=== PATIENT | female | born 1950 | race Caucasian/White ===

== ENCOUNTER 2024-12-12 13:30 | Outpatient (AMB) | payer OTHER, MEDICARE, MEDICAID, SELFPAY ==
[2024-12-12 13:42] VITALS: BP 106/60; PULSE 52; TEMP 36.3; O2SAT 95; BMI 27.8
--- NOTE | 2024-12-12 13:42 | MHC.PC.OV ---
Vital Signs 12/12/24 13:42 Height 4 ft 9.25 in Weight 129 lb 6.4 oz BMI 27.8 BP 106/60 Blood Pressure Location Lt brachial Position Sitting Pulse 52 Pulse Source Pulse Oximeter Temp 97.3 F Temp Source Temporal Artery Scan Pulse Oximetry (%) 95 Oxygen Delivery Method Room Air Intake Visit Reasons: establish care Intake Note: Patient is a new patient here to establish care. Transferring care from [facility] in [facility]. Medical records have not been requested and have not been received. Authorization to Release Medical Information Form completed today. Draw Bench Operator Required: No Accompanied by: Daughter Allergies codeine Allergy (Unknown, Verified 12/12/24 14:02) Itching dextromethorphan [Delsym] Allergy (Unknown, Verified 12/12/24 14:02) it put me in the hospital quetiapine [Seroquel] Allergy (Unknown, Verified 12/12/24 14:02) severe swelling meperidine [From DEMEROL] Adverse Reaction (Severe, Verified 12/12/24 14:02) NAUSEA & VOMITING morphine [MORPHINE] Adverse Reaction (Unknown, Verified 12/12/24 14:02) NAUSEA VOMITING Codeine Sulfate Allergy (Unknown, Uncoded 12/12/24 14:02) itching Medication List - Last Reconciled 12/12/24 by Kayla Arevalo PA-C albuterol sulfate 90 mcg/actuation 2 puffs inhalation Q6H amitriptyline 150 mg PO BEDTIME amlodipine 10 mg PO DAILY atorvastatin 80 mg PO QPM budesonide-formoterol 160-4.5 mcg/actuation (Symbicort) inhalation clonazepam 1 mg PO TID PRN duloxetine 30 mg PO DAILY metoprolol tartrate 50 mg PO DAILY nitroglycerin 0.4 mg sublingual Q5M PRN omeprazole 20 mg PO DAILY Tobacco use date assessed: 12/12/24 Fall risk assessment: 2 + Falls in past year Last assessed Fall Risk: 12/12/24 Dental Screening Dental Screen Date: 12/12/24 Did you have a dental visit in the last 12 months?: Yes Did you have a dental problem in the last 6 months where you did not have access to dental care?: No Was dental information given to patient?: Patient has dentist HPI establish care HPI Details 74-year-old female coming to the office for the 1st time. Transfer from [facility] in [place]. Presenting with management of chronic conditions and medication review. She reports issues with changing doctors and health insurance, impacting her treatment plan. Concerns are raised regarding previous psychiatric medications, specifically those affecting mood, causing dry mouth. She has a long-standing sleep apnea diagnosis, with a current CPAP machine that is outdated and ineffective. Chest pain has been identified, occurring monthly, and typically resolving with minimal intervention. Cognition and memory issues have become concerning, with an MRI scheduled for further evaluation. The patient's breast cancer history and ongoing soreness are noted in past treatments. [facility] Surgical History Hx of cholecystectomy Hx of left mastectomy History of intraocular lens implant Family History Father Hypertension Stroke Heart attack Mother Diabetes Daughter No problems noted. Other FH: mental illness Family history of substance abuse Social History Household Members: Family Housing: House Alcohol intake: former Patient Tobacco Use Status: Former Tobacco user (2004 quit) Tobacco use type: Cigarette e-Cigarette/Vaping Use: Never Used Second Hand Smoke Exposure: No service: No Current occupational status: retired Cognitive needs: No Hearing needs: No Vision needs: No Questionnaire PHQ-9 Over the last 2 weeks, how often have you been bothered by any of the following problems? 1. Little interest or pleasure in doing things: nearly every day 2. Feeling down, depressed, or hopeless: nearly every day 3. Trouble falling or staying asleep, or sleeping too much: nearly every day 4. Feeling tired or having little energy: nearly every day 5. Poor appetite or overeating: not at all 6. Feeling bad about yourself - or that you are a failure or have let yourself or your family down: nearly every day 7. Trouble concentrating on things, such as reading the newspaper or watching television: several days 8. Moving or speaking so slowly that other people could have noticed. Or the opposite - being so fidgety or restless that you have been moving around a lot more than usual: more than half the days 9. Thoughts that you would be better off or of hurting yourself in some way: several days Total score: 19 Depression Screening Interpretation: Positive Depression Screening Follow-up: Existing condition and In treatment Depression Screening Done: Yes 55229 - PHQ-9 Billing: Yes Source: Developed by Drs. Davis Parrish, Shikha Sands, Elver Berrios and colleagues, with an educational haydee from [employer]. Thrive Questionnaire Date Thrive assessed: 12/12/24 I am a: Parent/Caregiver What is your living situation today?: I have a steady place to live Within the past 12 months, did the food you bought not last and you didn't have the money to get more?: Often true Within the past 12 months, did you worry whether your food would run out before you got money to buy more?: Often true Do you have trouble paying for medicines?: No Do you have trouble getting transportation to medical appointments?: No Do you have trouble paying your heating and electricity bill?: No Do you have trouble taking care of your child, family member or friend?: No Do you have trouble with day-to-day activities such as bathing, preparing meals, shopping, managing finances, etc.?: Yes Are you currently unemployed and looking for a job?: No Are you interested in more education?: No Please select the resources that you would like help with: None Currently or been in a relationship where the following occur: No concerns reported THRIVE Score: 2 AUDIT C Alcohol Use Questionnaire (AUDIT-C) 1. How often do you have a drink containing alcohol?: Never 3. How often do you have six or more drinks on one occasion?: Never Total Score: 0 Score Reviewed/Action Taken: No JUSTYN-7 AMB Questionnaire JUSTYN-7 Date JUSTYN - 7 assessed: 12/12/24 Feeling nervous, anxious, or on edge: 3 = Nearly every day Not being able to stop or control worryin = Nearly every day Worrying too much about different things: 3 = Nearly every day Trouble relaxin = Nearly every day Being so restless that it is hard to sit still: 0 = Not at all Becoming easily annoyed or irritable: 2 = More than half the days Feeling afraid as if something awful might happen: 3 = Nearly every day Total JUSTYN-7 score (0-4 normal; 5-9 mild; 10-14 moderate; 15-21 severe): 17 Source: Developed by Drs. Davis Parrish, Shikha Sands, Elver Berrios and colleagues, with an educational haydee from [employer]. JUSTYN-7 Assessment Billing JUSTYN-7 Assessment Tool: JUSTYN-7 Assessment 90491 Review of Systems Const Denies body aches, Denies chills, Denies fever(s), Denies headache(s) and Denies poor appetite Eyes Reports no additional complaints ENT Denies dysphagia, Denies dizziness, Denies headache(s) and Denies odynophagia Card Denies chest pain, Denies syncope, Denies edema, Denies irregular heart rhythm, Denies lightheadedness and Denies dyspnea Resp Denies cough and Denies dyspnea GI Denies abdominal pain, Denies constipation, Denies dysphagia, Denies diarrhea, Denies nausea, Denies odynophagia and Denies vomiting Reports no additional complaints Musc Reports no additional complaints and Denies abnormal gait Skin/Breast Reports system reviewed and no additional complaints, except as documented Neuro Denies abnormal gait, Denies dizziness, Denies syncope and Denies headache(s) Psych Reports no additional complaints Physical exam (Primary Care) Vital Signs: Last Vital Signs Temp 97.3 F 12/12/24 13:42 Pulse 52 12/12/24 13:42 BP 106/60 12/12/24 13:42 Pulse Ox 95 12/12/24 13:42 Oxygen Delivery Method Room Air 12/12/24 13:42 BMI result Body Mass Index 27.8 Tobacco/Smoking Status: Tobacco use Status Tobacco use date assessed 12/12/24 12/12/24 13:49 Patient Tobacco Use Status Former Tobacco user (200412/12/24 14:29 quit) Tobacco use type Cigarette 12/12/24 14:01 e-Cigarette/Vaping Use Never Used 12/12/24 14:01 PHQ-9: PHQ-9 Score PHQ-9: Total score 19 12/13/24 11:33 Depression Screening Interpretation: Positive Depression Screening Follow-up: Existing condition and In treatment Thrive Assessment: Date of Thrive Assessment Date Thrive assessed 12/12/24 12/12/24 14:03 Currently or been in a relationship where the following occur: No concerns reported Const General: cooperative, healthy appearing, comfortable and no acute distress Orientation/consciousness: patient oriented x3 HENMT Head: Yes normocephalic Ears: hearing grossly normal bilaterally General nose exam: Normal external nose present Eyes General: appearance normal, both eyes and all related structures Conjunctivae: conjunctivae normal Neck Neck: Yes full ROM and Yes no lymphadenopathy Resp Effort & Inspection: normal respiratory effort Auscultation: clear to auscultation bilaterally, no crackles, no rales, no rhonchi and no wheezes Cardio Rate: regular rate Rhythm: regular rhythm Skin General skin exam: no rashes or lesions noted Neuro General: patient oriented x3 Gait exam (Neuro): Normal gait present Extrem General: Yes normal to inspection, Yes full ROM and No edema Psych Affect: normal affect Attitude: cooperative Insight: Good insight present (Psych) Judgement: Good judgement present (Psych) Coding Level of Care Code New Pt Level 4 (29747) Diagnoses Depression F32.A Anxiety F41.9 GERD (gastroesophageal reflux disease) K21.9 Angina pectoris I20.9 Insomnia G47.00 COPD (chronic obstructive pulmonary disease) J44.9 Hypertension I10 Hypercholesterolemia E78.00 Memory impairment R41.3 Obstructive sleep apnea G47.33 Additional Codes JUSTYN-7 Assessment Billing - JUSTYN-7 Assessment Tool: JUSTYN-7 Assessment 69874 ([id number]) PHQ-9 - 73684 - PHQ-9 Billing: Yes ([id number]) Assessment & Plan Assessment & Plan (1) Depression: Code(s): F32.A - Depression, unspecified Category: Medical Plan: Plan to discontinue on amitriptyline at this time reviewed with patient tapering schedule. Continue on duloxetine and plan to add trazodone for both depression and sleep. Plan to refer to outpatient psych clinic as well for further evaluation and treatment. (2) Anxiety: Code(s): F41.9 - Anxiety disorder, unspecified Category: Medical Plan: See plan above (3) GERD (gastroesophageal reflux disease): Code(s): K21.9 - Gastro-esophageal reflux disease without esophagitis Category: Medical Plan: Avoid trigger foods such as citrus, tomato products, soda, caffeine, spicy foods and other foods that may be irritating to your stomach. Avoid laying flat 3-4 hours after eating and elevate the head of the bed 30 degrees to prevent acid from moving into the esophagus. Continue on omeprazole (4) Angina pectoris: Code(s): I20.9 - Angina pectoris, unspecified Category: Medical Plan: Patient having chronic angina stable uses nitroglycerin. Patient has not had stress test in many years plan to order for nuclear stress test as patient can not walk for long periods of time is not a candidate for exercise stress test. Referral also placed to Cardiology (5) Insomnia: Code(s): G47.00 - Insomnia, unspecified Category: Medical Plan: See plan for depression (6) COPD (chronic obstructive pulmonary disease): Code(s): J44.9 - Chronic obstructive pulmonary disease, unspecified Category: Medical Plan: Patient is stable on current inhalers. She has been using her inhalers inappropriately and using the albuterol twice daily and Symbicort as needed. I instructed the patient and gave written and verbal instructions on how to appropriately use the inhalers. (7) Hypertension: Code(s): I10 - Essential (primary) hypertension Category: Medical Plan: Continue on current blood pressure medication. Avoid salt intake and encourage healthy diet and regular exercise. (8) Hypercholesterolemia: Code(s): E78.00 - Pure hypercholesterolemia, unspecified Category: Medical Plan: Avoid foods that are high in cholesterol such as red meat, fried foods, eggs and baked goods. Triglyceride goal of less than 150 and LDL goal of less than 100. Continue on atorvastatin 80 (9) Memory impairment: Code(s): R41.3 - Other amnesia Category: Medical Plan: Patient has MRI this Monday scheduled by her last PCP to evaluate for cognitive impairment. Can consider referral to Neurology. Patient has good insight into her health and is able to make appropriate informed decisions (10) Obstructive sleep apnea: Code(s): G47.33 - Obstructive sleep apnea (adult) (pediatric) Category: Medical Plan: Patient was prescribed CPAP many years ago and has not been using it for a long period of time due to the CPAP she had being updated and settings not appropriate. Referred to sleep medicine at this time for further evaluation and CPAP titration. Plan Patient has poor med compliance referral was placed to nurse navigation for follow up. I discussed continuing management for hypertension and COPD with current medications. I initiated transitioning from amitriptyline due to side effects to trazodone, starting at 25 mg to manage depression and sleep issues. An MRI for cognitive impairment and a non-exercise stress test were recommended to assess cardiovascular function. Referred patient to sleep medicine for CPAP titration. Nursing staff will assist with medication education and management. Ongoing monitoring will ensure understanding and compliance. This note was constructed using voice recognition software. While every effort has been made to ensure accuracy and clinical appeals specialist, still areas may have been included sometimes these areas may affect the content or meeting of the given symptoms. Total time spent caring for the patient today was 30 minutes. This includes time spent before the visit reviewing the chart, time spent during the visit, and time spent after the visit and documentation. Patient was informed and verbally consented to the use of an ambient scribe for clinic note documentation during this visit. Orders: Orders Comprehensive Met. Panel 12/12/24 Z00.00 - Encounter for general adult medical examination without abnormal findings Complete Blood Count Auto Diff 12/12/24.00 - Encounter for general adult medical examination without abnormal findings Lipid Panel 12/12/24 E78.00 - Pure hypercholesterolemia, unspecified Vitamin D 25-OH Total 12/12/24.00 - Encounter for general adult medical examination without abnormal findings TSH reflex Free T4 12/12/2400.00 - Encounter for general adult medical examination without abnormal findings CA lexiscan stress w gino 12/12/24 I20.9 - Angina pectoris, unspecified Vitamin B12 and Folate 12/12/24 Z00.00 - Encounter for general adult medical examination without abnormal findings Free T4 (Free Thyroxine) 12/12/24 Z00.00 - Encounter for general adult medical examination without abnormal findings Hemoglobin A1c 12/12/24 Z13.1 - Encounter for screening for diabetes mellitus NM cardiolite stress test 12/12/24 I20.9 - Angina pectoris, unspecified Referrals Psychiatry Outpatient Consultation Service F32.A - Depression, unspecified, F41.9 - Anxiety disorder, unspecified Cardiology Referral I20.9 - Angina pectoris, unspecified Sleep Medicine Referral G47.33 - Obstructive sleep apnea (adult) (pediatric) Nurse Navigator Referral J44.9 - Chronic obstructive pulmonary disease, unspecified, R41.3 - Other amnesia Medications: New trazodone 50 mg PO BEDTIME 30 tabs 0RF
--- OUTSIDE RECORDS SUMMARY | 2024-12-12 16:18 | XMS_ITS | Encounter Summary ---
Author Organization [employer] Address [address] [place] [address] Care Team Providers Care Saloon Keeper Name Role Phone Unavailable Primary Care Provider Unavailabl e Reason for Visit * Reason Onset Date Comments Appointment 10/05/2022 Patient has had to cancel appt twice due to no transportation but would like to reschedule appt with Dr. Small when possible. Please reach out to patient. Encounter Details Date Type Department Care Team ([facility] st Contact Info) Description 10/05/2022 Telephone [facility] [address] [place] [address] Nick Small, DMD [address] [place] [address] Appointment (Patient has had to cancel appt twice due to no transportation but would like to reschedule appt with Dr. Small when possible. Please reach out to patient. ) Social History Tobacco Use Types Packs/Day Years Used Date Smoking Tobacco: Never Assessed Comments Unknown Sex and Gender Information Value Date Recorded Sex Assigned at Female 07/04/2022 10:35 AM EDT Legal Sex Female 10:35 AM EDT Gender Identity Female 09/16/2022 9:03 AM EST Sexual Orientation Choose not to disclose 2022 9:03 AM EST COVID-19 Exposure Response Date Recorded In the last 10 days, have yo u been in contact with someone who was confirmed or suspected to have Coronavirus/COVID-19? No / Unsure 09/30/2022 3:26 PM EST documented as of this encounter Miscellaneous Notes * Telephone Encounter - Kira Austin - 10/05/2022 11:08 AM EST Patient has had to cancel appt twice due to no transportation but would like to reschedule appt with Dr. Small when possible. Please reach out to patient. documented in this encounter Plan of Treatment Not on file documented as of this encounter Visit Diagnoses Not on filedocumented in this encounter
--- OUTSIDE RECORDS SUMMARY | 2024-12-12 16:18 | XMS_ITS | Clinical Summary ---
Author Organization [employer] Address [address] [place] [address] Care Team Providers Care Numerical Control Lathe Operator Name Role Phone Unavailable Primary Care Provider Unavailabl e Allergies Active Allergy Reactions Criticality Noted Date Comments Codeine Itching Medium 06/17/2016 Sulfa Antibiotics 09/30/2022 Medications albuterol (2.5 MG/3ML) 0.083% nebulizer solution Inhale 2.5 mg. 02/23/2018 Active amitriptyline (Elavil) 50 MG tablet TAKE 2 TABLETS BY MOUTH DAILY AT BEDTIME 08/19/2022 Active amitriptyline (Elavil) 25 MG tablet TAKE 2 TABLETS BY MOUTH DAILY FOR 1 WEEK THEN TAKE 1 TABLET BY MOUTH DAILY FOR 1 WEEK THEN STOP 07/22/2022 Active amLODIPine (Norvasc) 10 MG tablet Take 10 mg by mouth in the morning. 10/13/2022 Active atorvastatin (Lipitor) 80 MG tablet Take 80 mg by mouth in the morning. 09/01/2022 Active clonazePAM (KlonoPIN) 1 MG tablet Take 1 mg by mouth 3 times daily. 10/09/2022 Active metoprolol tartrate (Lopressor) 50 MG tablet Take 50 mg by mouth in the morning. 10/13/2022 Active omeprazole (PriLOSEC) [address] capsule Take 20 mg by mouth in the morning. 10/13/2022 Active Active Problems Problem Noted Date Diagnosed Date Sulfa sensitivity 11/17/2022 Overview (11/17/2022): DO NOT USE ARTICAINE Social History Tobacco Use Types Packs/Day Years Used Date Smoking Tobacco: Never Assessed Comments Unknown Sex and Gender Information Value Date Recorded Sex Assigned at Female 07/04/2022 10:35 AM EDT Legal Sex Female 10:35 AM EDT Gender Identity Female 09/16/2022 9:03 AM EST Sexual Orientation Choose not to disclose 2022 9:03 AM EST Plan of Treatment Health Maintenance Due Date Last Done Comments CT Colonography 1951 Colonoscopy 1951 Colorectal Cancer Screening 1951 Depression Screening 1951 FIT DNA/Cologuard 1951 FIT 1951 FOBT 1951 Lipid Panel 1951 SDOH Screening 1951 Sigmoidoscopy 1951 Alcohol/Substance Use Screening 1963 Tobacco Screening 1963 Hepatitis C Screening 1969 RSV Patients and Patients Aged 60 years or older (1 - Risk 60-74 years 1-dose series) 2011 Dental Prophylaxis 08/31/2019 02/28/2019, 02/28/2019 Dental Oral Exam 05/21/2023 11/17/2022, 02/26/2019 Dental X-Ray: Bitewings 11/19/2023 11/17/2022, 02/26 COVID-19 Vaccine ( - season) 2024 05/29/2021, 11/30/2020, 11/09/2020 Influenza Vaccine (#1) 2024 , 06/06/2020, 06/04/2020, Additional history exists DTaP/Tdap/Td Vaccines (4 - Td or Tdap) 07/13/2024 07/13/2014, 03/18/2013, 06/05/2012 Dental X-Ray: Full Mouth 11/18/2025 11/17/2022, 02/03 Zoster Vaccines Completed 05/30/2018, 12/30/2017 Hepatitis A Vaccines Aged Out 10/08/2018 No long er eligible based on patient's age to complete this topic Pneumococcal Vaccine: 50+ Years Completed 12/19/2018, 07/19/2017, 06/17/2016 HIB Vaccines Aged Out No longer eligi ble based on patient's age to complete this topic HPV Vaccines Aged Out No longer eligi ble based on patient's age to complete this topic Hepatitis B Vaccines Aged Out No long er eligible based on patient's age to complete this topic IPV Vaccines Aged Out No longer eligi ble based on patient's age to complete this topic Meningococcal Vaccine Aged Out No bhupinder vickey eligible based on patient's age to complete this topic RSV under 20 months Aged Out No longe r eligible based on patient's age to complete this topic Rotavirus Vaccines Aged Out No longer eligible based on patient's age to complete this topic Procedures Procedure Name Priority Date/Time Associated Diagnosis Comments INTRAORAL - COMPLETE SERIES OF RADIOGRAPHIC IMAGES Routine 11/17/2022 2:30 PM EDT COMPREHENSIVE ORAL EVALUATION - NEW OR ESTABLISHED PATIENT Routine 11/17/2022 2:30 PM EDT from Last 3 Months or Most Recently Relevant to Health Maintenance Insurance DENTAL - [facility] FULL (MEDICAID)
--- OUTSIDE RECORDS SUMMARY | 2024-12-12 16:18 | XMS_ITS | Encounter Summary ---
Author Organization [employer] Address [address] [place] [address] Care Team Providers Care Mergers And Acquisitions Consultant Name Role Phone Unavailable Primary Care Provider Unavailabl e Encounter Details Date Type Department Care Team (Latest Contact Info) Description 02/28/2019 Abstract [facility] CONVERSIONS Dental, Provider, DDS Social History Tobacco Use Types Packs/Day Years Used Date Smoking Tobacco: Never Assessed Comments Unknown Sex and Gender Information Value Date Recorded Sex Assigned at Female 07/04/2022 10:35 AM EDT Legal Sex Female 10:35 AM EDT Gender Identity Female 09/16/2022 9:03 AM EST Sexual Orientation Choose not to disclose 2022 9:03 AM EST documented as of this encounter Plan of Treatment Not on file documented as of this encounter Visit Diagnoses Not on filedocumented in this encounter
== END 2024-12-12 14:53 | disposition home or self-care (01) ==
LOC: HO.HMCH 13:31
DX: I20.9 Angina pectoris, unspecified (principal); J44.9 Chronic obstructive pulmonary disease, unspecified; F32.A Depression, unspecified; F41.9 Anxiety disorder, unspecified; K21.9 Gastro-esophageal reflux disease without esophagitis; G47.00 Insomnia, unspecified; I10 Essential (primary) hypertension; E78.00 Pure hypercholesterolemia, unspecified; R41.3 Other amnesia; G47.33 Obstructive sleep apnea (adult) (pediatric)

== ENCOUNTER → 2024-12-12 13:30 | Outpatient (BNVA) | payer MEDICARE, OTHER, SELFPAY | DX: I20.9 Angina pectoris, unspecified (principal); G47.00 Insomnia, unspecified; J44.9 Chronic obstructive pulmonary disease, unspecified; E78.00 Pure hypercholesterolemia, unspecified; R41.3 Other amnesia; G47.33 Obstructive sleep apnea (adult) (pediatric); F32.A Depression, unspecified; F41.9 Anxiety disorder, unspecified; I10 Essential (primary) hypertension; Z99.89 Dependence on other enabling machines and devices | CPT/HCPCS: 96127 ==

== ENCOUNTER 2025-01-01 13:20 | Emergency (ER) | payer MEDICARE, MEDICAID, SELFPAY ==
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
[2025-01-01 13:24] VITALS: BP 130/70; PULSE 56; RESP 20; TEMP 36.5; O2SAT 96; BMI 23.5
--- NOTE | 2025-01-01 13:44 | ECG_ITS ---
Test Reason : MEDICAL CLEARANCE Blood Pressure : */* mmHG Vent. Rate : 48 BPM Atrial Rate : 48 BPM P-R Int : 188 ms QRS Dur : 68 ms QT Int : 472 ms P-R-T Axes : 31 4 48 degrees QTcB Int : 421 ms Sinus bradycardia Septal infarct (cited on or before 22-Jun-2013) Abnormal ECG When compared with ECG of 20-Oct-2013 02:11, Vent. rate has decreased by 37 bpm Incomplete right bundle branch block is no longer Present Questionable change in initial forces of Anterior leads Referred By: Generic ED Physician Electronically Signed By: Ubaldo Marsh
[2025-01-01 14:06] LABS: MANUAL DIFF FLAG NO
[2025-01-01 14:10] LABS: Basophils Absolute Auto 0.1 X10*3/uL (0.0-0.2); Basophils Percent Auto 0.7 % (0-2); Eosinophils Absolute Auto 0.1 X10*3/uL (0.0-0.4); Hematocrit 35.6 % (37.0-47.0); Hemoglobin 12.2 g/dl (12.0-16.0); Imm Gran Abs Auto 0.01 X10*3/uL (0.00-0.03); Imm Gran Pct Auto 0.1 % (0.0-0.4); Lymphocytes Percent Auto 27.9 % (20-40); Mean Corpuscular HGB Conc 34.3 g/dl (31.0-35.0); Mean Corpuscular Hemoglobin 29.9 pg (27.0-33.0); Mean Corpuscular Volume 87.3 fL (80.0-98.0); Mean Platelet Volume 9.2 fL (9.4-12.3); Monocytes Absolute Auto 0.5 X10*3/uL (0.1-1.2); Neutrophils Absolute Auto 4.5 x10*3/uL (2.0-8.3); Neutrophils Percent Auto 62.3 % (45-73); Platelet Count 322 X10*3/uL (160-400); Red Blood Count 4.08 X10*6/uL (4.20-5.50); Red Cell Distribution Width 12.6 % (11.0-16.0); White Blood Count 7.2 X10*3/uL (4.8-10.8)
[2025-01-01 14:20] LABS: Ethanol < 10 mg/dL
[2025-01-01 14:23] LABS: Salicylate < 5.0 mg/dL (15-30)
[2025-01-01 14:25] LABS: Alanine Aminotransferase 28 U/L (0-31); Albumin Level 4.4 g/dL (3.5-5.0); Alkaline Phosphatase 92 U/L (39-117); Anion Gap 13 (12-20); Aspartate Amino Transferase 30 U/L (5-31); Bilirubin Total 0.4 mg/dL (0.0-1.0); Blood Urea Nitrogen 26 mg/dL (9-16); Calcium 9.7 mg/dL (8.4-10.2); Carbon Dioxide 27 mmol/L (22-29); Chloride 104 mmol/L (96-108); Estimated Glomerular Filt Rate 50; Glucose Random 89 mg/dL (60-115); Lipase 37 U/L (8-78); Magnesium 1.6 mg/dL (1.6-2.6); Potassium 3.7 mmol/L (3.3-5.1); Sodium 140 mmol/L (135-145); Total Protein 7.8 g/dL (6.5-8.0)
[2025-01-01 14:26] LABS: Acetaminophen LAB < 3 mcg/mL (<30)
[2025-01-01 15:23] LABS: Appearance Urine Clear; Color Urine Yellow; Glucose Urine UA Negative (Negative); Leukocyte Esterase Urine Trace (Negative); Nitrite Urine Negative (Negative); Specific Gravity - Urine 1.015 (1.005-1.025); UMIC TRIGGER UACC YES; Urine Blood Negative (Negative); Urine Ketones Negative (Negative); Urine Protein Negative (Neg-Trace)
[2025-01-01 15:26] LABS: Bacteria Urine None Seen (None Seen); Hyaline Casts Urine 0-2 /LPF (0-2); RBC Urine 0-2 /HPF (0-2); Squamous Epithelial Cell Urine 0-2 /HPF (0-2); WBC Urine 0-5 /HPF (0-5)
[2025-01-01 15:33] LABS: Amphetamine Screen Urine Not Detected (Not Detect); Barbiturates, Urine Not Detected (Not Detect); Benzodiazepines Screen Urine POSITIVE (Not Detect); Buprenorphine Scr Not Detected (Not Detect); Cannabinoid Screen Urine Not Detected (Not Detect); Cocaine Screen Urine Not Detected (Not Detect); Fentanyl, urine Not Detected (Not Detect); Methadone Screen, Urine Not Detected (Not Detect); Opiate Screen Urine Not Detected (Not Detect); Oxycodone Screen Urine Not Detected (Not Detect); Phencyclidine Screen Urine Not Detected (Not Detect)
--- OUTSIDE RECORDS SUMMARY | 2025-01-01 15:56 | XMS_ITS | Encounter Summary ---
Author Organization [employer] Address [address] [facility] [address] [place] [address] Care Team Providers Care Manufactured Buildings Supervisor Name Role Phone Unavailable Primary Care Provider Unavailabl e Encounter Details Date Type Department Care Team (Latest Contact Info) Description 02/28/2019 Abstract [facility] CONVERSIONS Dental, Provider, DDS Social History Tobacco [...]
--- OUTSIDE RECORDS SUMMARY | 2025-01-01 15:56 | XMS_ITS | Encounter Summary ---
Author Organization [employer] Address [address] [place] [address] Care Team Providers Care Retort Fireman Name Role Phone Unavailable Primary Care Provider Unavailabl e Reason for Visit * Reason Onset Date Comments Appointment 10/05/2022 Patient has had to cancel appt twice due to no transportation but would like to reschedule appt with Dr. Small when possible. Please reach out to patient. Encounter Details Date Type Department Care Team ([facility] st Contact Info) Description 10/05/2022 Telephone [facility] AD[facility] [address] [place] [address] Nick Small, DMD [address] [place] [address] Appointment (Patient has had to cancel appt [...]
--- OUTSIDE RECORDS SUMMARY | 2025-01-01 15:56 | XMS_ITS | Clinical Summary ---
Author Organization [employer] Address [address] [facility] [address] [place] [address] Care Team Providers Care Factory Lay Out Engineer Name Role Phone Unavailable Primary Care Provider [...]
[2025-01-01 18:20] VITALS: BP 136/77; PULSE 64; RESP 20; TEMP 36.8; O2SAT 95
== END 2025-01-01 18:52 | disposition home or self-care (01) ==
PROVIDERS: Physician Assistant Medical; Emergency Provider Emergency Medicine
DX: F32.A Depression, unspecified (principal); F41.9 Anxiety disorder, unspecified; R45.1 Restlessness and agitation; G47.00 Insomnia, unspecified; R41.3 Other amnesia; I10 Essential (primary) hypertension; E78.00 Pure hypercholesterolemia, unspecified; J44.9 Chronic obstructive pulmonary disease, unspecified; Z91.148 Patient's other noncompliance with medication regimen for other reason; Z79.899 Other long term (current) drug therapy
CPT/HCPCS: 36415; 80053; 80143; 80179; 80307; 81001; 83690; 83735; 85025; 93005; 99285; S9485

== ENCOUNTER → 2025-01-01 13:44 | Outpatient (BNV) | payer MEDICARE, MEDICAID, SELFPAY | PROVIDERS: Emergency Provider Emergency Medicine; Visit Provider Internal Medicine Cardiovascular Disease | DX: I25.2 Old myocardial infarction (principal); R00.1 Bradycardia, unspecified | CPT/HCPCS: 93010 ==

== ENCOUNTER 2025-01-06 13:03 | Outpatient (AMB) | payer MEDICARE, MEDICAID, SELFPAY ==
--- NOTE | 2025-01-06 13:05 | MHC.PC.OV ---
Intake Visit Reasons: follow up medications [phone] Green Feed Attendant Required: No Accompanied by: Daughter Allergies codeine Allergy (Unknown, Verified 01/06/25 13:11) Itching dextromethorphan [Delsym] Allergy (Unknown, Verified 01/06/25 13:11) it put me in the hospital quetiapine [Seroquel] Allergy (Unknown, Verified 01/06/25 13:11) severe swelling meperidine [From DEMEROL] Adverse Reaction (Severe, Verified 01/06/25 13:11) NAUSEA & VOMITING morphine [MORPHINE] Adverse Reaction (Unknown, Verified 01/06/25 13:11) NAUSEA VOMITING Codeine Sulfate Allergy (Unknown, Uncoded 01/06/25 13:11) itching Medication List - Last Reconciled 01/06/25 by Kayla Arevalo PA-C albuterol sulfate 90 mcg/actuation 2 puffs inhalation Q6H amlodipine 10 mg PO DAILY atorvastatin 80 mg PO QPM budesonide-formoterol 160-4.5 mcg/actuation (Symbicort) inhalation clonazepam 1 mg PO TID PRN duloxetine 30 mg PO DAILY hydroxyzine HCl 25 mg PO BEDTIME metoprolol tartrate 50 mg PO DAILY nitroglycerin 0.4 mg sublingual Q5M PRN omeprazole 20 mg PO DAILY Tobacco use date assessed: 12/12/24 Fall risk assessment: 2 + Falls in past year Last assessed Fall Risk: 01/06/25 Dental Screening Dental Screen Date: 12/12/24 HPI follow up medications [id number] HPI Details 74-year-old female past medical history of anxiety, depression, GERD, COPD, hypertension, hypercholesterolemia, obstructive sleep apnea memory impairment last seen 12/2024 presenting via telehealth for medication management.? Patient presents via telehealth with her daughter. Her daughter reports the patient has been speaking to people who are and hearing voices. This began after patient has suddenly discontinued duloxetine and after tapering off of amitriptyline. Patient was complaining of dry mouth with amitriptyline but did find it beneficial for sleep. Since discontinuation of these medications she has been unable to sleep and has been having worsening of her mental status. [facility] Surgical History Hx of cholecystectomy Hx of left mastectomy History of intraocular lens implant Family History Father Hypertension Stroke Heart attack Mother Diabetes Daughter No problems noted. Other FH: mental illness Family history of substance abuse Social History Household Members: Family Housing: House Alcohol intake: former Patient Tobacco Use Status: Former Tobacco user Tobacco use type: Cigarette e-Cigarette/Vaping Use: Never Used Second Hand Smoke Exposure: No service: No Current occupational status: retired Cognitive needs: No Hearing needs: No Vision needs: No Questionnaire Thrive Questionnaire Date Thrive assessed: 12/12/24 JUSTYN-7 AMB Questionnaire JUSTYN-7 Date UJSTYN - 7 assessed: 12/12/24 Source: Developed by Drs. Davis Parrish, Shikha Sands, Elver Berrios and colleagues, with an educational haydee from [employer]. Review of Systems Const Denies body aches, Denies chills, Denies fever(s), Denies headache(s) and Denies poor appetite Eyes Reports no additional complaints ENT Denies dizziness and Denies headache(s) Card Details: Last episode of angina 2 months ago Denies chest pain, Denies chest pain at rest, Denies chest pain with activity and Denies dyspnea Resp Denies cough and Denies dyspnea GI Denies abdominal pain, Denies nausea and Denies vomiting Reports no additional complaints Musc Reports no additional complaints and Denies abnormal gait Skin/Breast Reports system reviewed and no additional complaints, except as documented Neuro Denies abnormal gait, Denies dizziness and Denies headache(s) Psych Reports no additional complaints Physical exam (Primary Care) Vital Signs: Vital signs and physical exam not performed today due to nature of telehealth visit Tobacco/Smoking Status: Tobacco use Status Tobacco use date assessed 12/12/24 01/06/25 13:06 Patient Tobacco Use Status Former Tobacco user 01/06/25 13:06 Tobacco use type Cigarette 01/06/25 13:06 e-Cigarette/Vaping Use Never Used 01/06/25 13:06 Thrive Assessment: Date of Thrive Assessment Date Thrive assessed 12/12/24 01/06/25 13:06 Telehealth Telehealth Telehealth Platform: Telephone Location of provider rendering services: practice address Location of patient: address on file Patient Identification confirmed using: Name, : Yes Telehealth method: video Patient verbally consented to treatment: Yes Patient verbally consented to billing insurance company: Yes Patient informed of any privacy concerns related to visit: Yes Coding Level of Care Code Tele Est Pt Level 4 (25987) Diagnoses Memory impairment R41.3 Auditory hallucinations R44.0 Anxiety F41.9 Depression F32.A Assessment & Plan Assessment & Plan (1) Memory impairment: Code(s): R41.3 - Other amnesia Category: Medical Plan: Patient having memory impairment and auditory hallucinations. Unclear if the auditory hallucinations are related to underlying psych disorder or a manifestation of possible dementia. Plan to obtain neurology eval as well as psych eval. Patient was recently seen in [facility] ED for similar concerns and was discharged home. Patient had worsening of symptoms after discontinuation of amitriptyline and duloxetine. Plan to restart on these medications at a lower dose for patient's safety with plans to taper up to previous dose. I discussed with community navigation and plan to expedite outpatient psych referral to get patient is seen sooner. Referral was also placed to neurology today I reviewed with the patient red flag symptoms and when to present for re-evaluation. I also advised patient if her mental status worsens she can seek emergency crisis evaluation through ED. (2) Auditory hallucinations: Code(s): R44.0 - Auditory hallucinations Category: Medical Plan: See above (3) Anxiety: Code(s): F41.9 - Anxiety disorder, unspecified Category: Medical Plan: Patient having worsening anxiety since discontinuation of medications. She had not find hydroxyzine or trazodone helpful for sleep. Plan to start on duloxetine and restart on amitriptyline at this time. (4) Depression: Code(s): F32.A - Depression, unspecified Category: Medical Plan: See above Plan This note was constructed using voice recognition software. While every effort has been made to ensure accuracy and truck repair service estimator, still areas may have been included sometimes these areas may affect the content or meeting of the given symptoms. Total time spent caring for the patient today was 30 minutes. This includes time spent before the visit reviewing the chart, time spent during the visit, and time spent after the visit and documentation. Orders: Referrals Neurology Referral R41.3 - Other amnesia, R44.0 - Auditory hallucinations Medications: New duloxetine 30 mg PO DAILY 90 caps 0RF amitriptyline 50 mg PO BEDTIME 30 tabs 0RF
--- OUTSIDE RECORDS SUMMARY | 2025-01-06 14:24 | XMS_ITS | Encounter Summary ---
Author Organization [employer] Address [address] [facility] [address] [place] [address] Care Team Providers Care Flight Data Technician Name Role Phone Unavailable Primary Care Provider Unavailabl e Encounter Details Date Type Department Care Team (Latest Contact Info) Description 02/28/2019 Abstract [facility] CONVERSIONS Dental, Provider, DDS Social History [...]
--- OUTSIDE RECORDS SUMMARY | 2025-01-06 14:24 | XMS_ITS | Clinical Summary ---
Author Organization [employer] Address [address] [facility] [address] [place] [address] Care Team Providers Care Interactive Digital Media Specialist Name Role Phone Unavailable Primary Care Provider [...]
--- OUTSIDE RECORDS SUMMARY | 2025-01-06 14:24 | XMS_ITS | Encounter Summary ---
Author Organization [employer] Address [address] [place] [address] Care Team Providers Care Crosstie Inspector Name Role Phone Unavailable Primary Care Provider Unavailabl e Reason for Visit * Reason Onset Date Comments Appointment 10/05/2022 Patient has had to cancel appt twice due to no transportation but would like to reschedule appt with Dr. Small when possible. Please reach out to patient. Encounter Details Date Type Department Care Team ([facility] st Contact Info) Description 10/05/2022 Telephone [facility] ADULT DENTAL [address] [place] [address] Nick Small, DMD [address] [place] [address] Appointment (Patient has had to cancel appt [...]
== END 2025-01-06 13:39 | disposition home or self-care (01) ==
LOC: HO.HMCH 13:04
DX: R41.3 Other amnesia (principal); R44.0 Auditory hallucinations; F41.9 Anxiety disorder, unspecified; F32.A Depression, unspecified

== ENCOUNTER → 2025-01-15 09:50 | Outpatient (REF) | payer MEDICARE, MEDICAID, SELFPAY ==
--- NOTE | 2025-01-15 09:55 | CA_ITS ---
Acquisition Time: 2025-01-15 09:56:52 Total Exercise Time: 00:08:18 Test Indications: I20.9 Medications: SEE H&P Protocol: LEXISCAN Max HR: 88 BPM 59% of Pred: 147 BPM Max BP: 110/58 mmHG Max Work Load: 1.5 METS Pharmacological stress test with Lexiscan while pt walks the treadmill at 1mph, with reports of SOB and fatigue, no chest pain, with isolated PACs, with normotensive response to injection. Nondiagnostic EKG for ischemia. In recovery, pt treated with IVP Aminophylline 75 mg to reverse Lexiscan after which pt feeling back to baseline. Nuclear images pending. Test reviewed with Dr. Kilgore. Referred By: Kayla Arevalo Electronically Signed By: Tony Calvillo
--- OUTSIDE RECORDS SUMMARY | 2025-01-15 10:36 | XMS_ITS | Encounter Summary ---
Author Organization [employer] Address [address] [place] [address] Care Team Providers Care Drafter Detail Name Role Phone Unavailable Primary Care Provider Unavailabl e Reason for Visit * Reason Onset Date Comments Appointment 10/05/2022 Patient has had to cancel appt twice due to no transportation but would like to reschedule appt with Dr. Small when possible. Please reach out to patient. Encounter Details Date Type Department Care Team ([facility] Contact Info) Description 10/05/2022 Telephone [facility] ADULT DENTAL [address] [place] [address] Nick Small, DMD [address] [place], [place] [phone] Appointment (Patient has had to cancel appt [...]
--- OUTSIDE RECORDS SUMMARY | 2025-01-15 10:36 | XMS_ITS | Encounter Summary ---
Author Organization [employer] Address [address] [place] [address] Care Team Providers Care Central Supply Assistant Name Role Phone Unavailable Primary Care Provider Unavailabl e Encounter Details Date Type Department Care Team (Latest Contact Info) Description 02/28/2019 Abstract [facility] CONVERSIONS Dental, Provider, DDS Social History [...]
--- OUTSIDE RECORDS SUMMARY | 2025-01-15 10:36 | XMS_ITS | Clinical Summary ---
Author Organization [employer] Address [address] [place] [address] Care Team Providers Care Hardware Press Operator Name Role Phone Unavailable Primary Care [...]
== END ==
LOC: HO.CARD 09:50
DX: I20.9 Angina pectoris, unspecified (principal)
CPT/HCPCS: 78452; 93017; A9500; J0280; J2785

== ENCOUNTER → 2025-01-15 09:55 | Outpatient (BNV) | payer MEDICARE, MEDICAID, SELFPAY | DX: I20.9 Angina pectoris, unspecified (principal) | CPT/HCPCS: 78452; 93016; 93018 ==

== ENCOUNTER 2025-01-24 14:23 | Outpatient (AMB) | payer MEDICARE, MEDICAID, SELFPAY ==
--- NOTE | 2025-01-24 14:25 | MHC.PC.OV ---
Vital Signs 01/24/25 14:27 Height 4 ft 9.25 in Weight 128 lb 6 oz BMI 27.5 BP 120/70 Blood Pressure Location Rt brachial Position Sitting Pulse 50 Pulse Source Pulse Oximeter Temp 97.1 F Temp Source Temporal Artery Scan Pulse Oximetry (%) 97 Oxygen Delivery Method Room Air Intake Visit Reasons: f/u medication and anxiety Intake Note: Patient is here to follow up on medication and anxiety. 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 Required: No Construction Scheduler: Not Required per policy Accompanied by: Self / Same As Patient Allergies codeine Allergy (Unknown, Verified 01/24/25 14:42) Itching dextromethorphan [Delsym] Allergy (Unknown, Verified 01/24/25 14:42) it put me in the hospital quetiapine [Seroquel] Allergy (Unknown, Verified 01/24/25 14:42) severe swelling meperidine [From DEMEROL] Adverse Reaction (Severe, Verified 01/24/25 14:42) NAUSEA & VOMITING morphine [MORPHINE] Adverse Reaction (Unknown, Verified 01/24/25 14:42) NAUSEA VOMITING Codeine Sulfate Allergy (Unknown, Uncoded 01/24/25 14:42) itching Medication List - Last Reconciled 01/24/25 by Kayla Arevalo PA-C albuterol sulfate 90 mcg/actuation 2 puffs inhalation Q6H amitriptyline 50 mg PO BEDTIME amlodipine 10 mg PO DAILY atorvastatin 80 mg PO QPM budesonide-formoterol 160-4.5 mcg/actuation (Symbicort) inhalation clonazepam 1 mg PO TID PRN duloxetine 30 mg PO DAILY hydroxyzine HCl 25 mg PO BEDTIME metoprolol tartrate 50 mg PO DAILY nitroglycerin 0.4 mg sublingual Q5M PRN omeprazole 20 mg PO DAILY Tobacco use date assessed: 01/24/25 Fall risk assessment: No Falls in past year Last assessed Fall Risk: 01/24/25 Dental Screening Dental Screen Date: 12/12/24 HPI f/u medication and anxiety HPI Details 74-year-old female past medical history of anxiety, depression, GERD, COPD, hypertension, hypercholesterolemia, obstructive sleep apnea memory impairment last seen 01/2025 coming in for follow up. patient was restarted on duloxetine and amitriptyline at last visit. Presenting with medication management and comprehensive review of health conditions. Previously observed auditory and visual hallucinations have significantly improved. Ongoing memory issues are under evaluation with an upcoming neurology consultation and an MRI planned. Reports of chest pain managed with nitroglycerin have reduced, with the last episode occurring several months ago. This pain is described as a sudden squeezing that responds well to nitroglycerin administration. She is on duloxetine and was prescribed 30 mg daily and has been taking two tablets instead of the single capsule as prescribed. She is adamant that she is taking 60mg worth of Duloxetine and wants to continue this dose. She has seen an improvement in her sleep and has been on the Amitriptyline and would like to increase this medication. [facility] Surgical History Hx of cholecystectomy Hx of left mastectomy History of intraocular lens implant Family History Father Hypertension Stroke Heart attack Mother Diabetes Daughter No problems noted. Other FH: mental illness Family history of substance abuse Social History Household Members: Family Housing: House Alcohol intake: former Patient Tobacco Use Status: Former Tobacco user Tobacco use type: Cigarette e-Cigarette/Vaping Use: Never Used Second Hand Smoke Exposure: Yes service: No Current occupational status: retired Cognitive needs: No Hearing needs: No Vision needs: No Questionnaire Thrive Questionnaire Date Thrive assessed: 12/12/24 I am a: Parent/Caregiver What is your living situation today?: I have a steady place to live Within the past 12 months, did the food you bought not last and you didn't have the money to get more?: Often true Within the past 12 months, did you worry whether your food would run out before you got money to buy more?: Often true Do you have trouble paying for medicines?: No Do you have trouble getting transportation to medical appointments?: No Do you have trouble paying your heating and electricity bill?: No Do you have trouble taking care of your child, family member or friend?: No Do you have trouble with day-to-day activities such as bathing, preparing meals, shopping, managing finances, etc.?: Yes Are you currently unemployed and looking for a job?: No Are you interested in more education?: No Please select the resources that you would like help with: None Currently or been in a relationship where the following occur: No concerns reported THRIVE Score: 2 JUSTYN-7 AMB Questionnaire JUSTYN-7 Date JUSTYN - 7 assessed: 12/12/24 Source: Developed by Drs. Davis Parrish, Shikha Sands, Elver Berrios and colleagues, with an educational haydee from [employer]. Review of Systems Const Denies body aches, Denies chills, Denies fever(s), Denies headache(s) and Denies poor appetite Eyes Reports no additional complaints ENT Denies dysphagia, Denies dizziness, Denies headache(s) and Denies odynophagia Card Denies chest pain, Denies syncope, Denies edema, Denies irregular heart rhythm, Denies lightheadedness and Denies dyspnea Resp Denies cough and Denies dyspnea GI Denies abdominal pain, Denies constipation, Denies dysphagia, Denies diarrhea, Denies nausea, Denies odynophagia and Denies vomiting Reports no additional complaints Musc Reports no additional complaints and Denies abnormal gait Skin/Breast Reports system reviewed and no additional complaints, except as documented Neuro Denies abnormal gait, Denies dizziness, Denies syncope and Denies headache(s) Psych Reports no additional complaints Physical exam (Primary Care) Vital Signs: Last Vital Signs Temp 97.1 F 01/24/25 14:27 Pulse 50 01/24/25 14:27 BP 120/70 01/24/25 14:27 Pulse Ox 97 01/24/25 14:27 Oxygen Delivery Method Room Air 01/24/25 14:27 BMI result Body Mass Index 27.5 Tobacco/Smoking Status: Tobacco use Status Tobacco use date assessed 01/24/25 01/24/25 14:34 Patient Tobacco Use Status Former Tobacco user 01/24/25 14:34 Tobacco use type Cigarette 01/24/25 14:34 e-Cigarette/Vaping Use Never Used 01/24/25 14:34 Thrive Assessment: Date of Thrive Assessment Date Thrive assessed 12/12/24 01/24/25 14:34 Currently or been in a relationship where the following occur: No concerns reported Const General: cooperative, healthy appearing, comfortable and no acute distress Orientation/consciousness: patient oriented x3 HENMT Head: Yes normocephalic Ears: hearing grossly normal bilaterally General nose exam: Normal external nose present Eyes General: appearance normal, both eyes and all related structures Conjunctivae: conjunctivae normal Neck Neck: Yes full ROM and Yes no lymphadenopathy Resp Effort & Inspection: normal respiratory effort Auscultation: clear to auscultation bilaterally, no crackles, no rales, no rhonchi and no wheezes Cardio Rate: regular rate Rhythm: regular rhythm Skin General skin exam: no rashes or lesions noted Neuro General: patient oriented x3 Gait exam (Neuro): Normal gait present Extrem General: Yes normal to inspection, Yes full ROM and No edema Psych Affect: normal affect Attitude: cooperative Insight: Good insight present (Psych) Judgement: Good judgement present (Psych) Coding Level of Care Code Est Pt Level 4 (55319) Diagnoses Memory impairment R41.3 Auditory hallucinations R44.0 Anxiety F41.9 Depression F32.A Assessment & Plan Assessment & Plan (1) Memory impairment: Code(s): R41.3 - Other amnesia Category: Medical Plan: Patient does endorse mild memory impairment she has an appointment with a neurologist 1st week of February. She also has an MRI that was ordered by her previous PCP which was scheduled for next week. Advised patient to bring MRI results to her Neurology appointment. (2) Auditory hallucinations: Code(s): R44.0 - Auditory hallucinations Category: Medical Plan: Patient was previously having auditory and visual hallucinations after discontinuation of amitriptyline and duloxetine. She states since restarting this medication she no longer has issues with hallucinations and is no longer having hyper realistic dreams. Advised patient to continue on this medication at this time and follow up with Neurology. Referral was also placed to psych at last visit for medication adjustment (3) Anxiety: Code(s): F41.9 - Anxiety disorder, unspecified Category: Medical Plan: Plan to continue on duloxetine and amitriptyline for management of anxiety and depression. I did discuss the importance of taking the medications as prescribed. Patient has been taking duloxetine 30 mg 2 tablets in the morning I advised her this was not the prescribed dose and she should have been on 30 mg once daily as prescribed. She feels good on the 60 mg and would like to continue this dose I did discuss side effects of the medication with the patient. Plan to send prescription for 60 mg tablet once daily of duloxetine advised patient to only use his tablet once a day as prescribed and not to take in excess of this medication. She is also requesting an increase emptying amitriptyline and is requesting 60 mg. I did discuss with her the next dose is technically 75 mg however she would like to try the 60 mg dose 1st and she will take one 50 mg tablet and one 10 mg tablet for combined total dose of 60 mg of amitriptyline. Please take his medications as prescribed and plan to follow up with outpatient psych clinic for medication adjustment (4) Depression: Code(s): F32.A - Depression, unspecified Category: Medical Plan: See above Plan Duloxetine will continue at 60 mg once daily following the patient's non-standard regimen for its noticed effectiveness. Amitriptyline will increase to 60 mg at bedtime, using current tablets until further notice to manage current symptoms adequately. Given cognitive memory issues, I plan neurology referral and MRI at [facility] to supply insight and updates. It is essential to provide reading results quickly for neurological examination focus. Recognizing she's asymptomatic for chest discomfort typically resolved with nitroglycerin, I encouraged maintaining medication usage while pursuing discontinuation as clinically indicated. It is important to provide ahead time for MRI scheduling and ensure neurologist updates align. Discussed the importance of following medication regimens as prescribed. This note was constructed using voice recognition software. While every effort has been made to ensure accuracy and radar tester, still areas may have been included sometimes these areas may affect the content or meeting of the given symptoms. Total time spent caring for the patient today was 30 minutes. This includes time spent before the visit reviewing the chart, time spent during the visit, and time spent after the visit and documentation. Patient was informed and verbally consented to the use of an ambient scribe for clinic note documentation during this visit. Medications: New amitriptyline with 50mg tablet for combined dose of 60mg 10 mg PO BEDTIME 30 tabs 0RF amitriptyline with 50mg tablet for combined dose of 60mg 10 mg PO BEDTIME 30 tabs 0RF duloxetine 60 mg PO DAILY 30 caps 1RF Changed From amitriptyline 50 mg PO BEDTIME 30 tabs 0RF To amitriptyline with 10mg tablet for combined dose of 60 mg 50 mg PO BEDTIME 30 tabs 0RF Refilled amitriptyline with 10mg tablet for combined dose of 60 mg 50 mg PO BEDTIME 30 tabs 0RF Discontinued duloxetine Discontinued Reason: Patient no longer taking 30 mg PO DAILY 90 caps 0RF
[2025-01-24 14:27] VITALS: BP 120/70; PULSE 50; TEMP 36.2; O2SAT 97; BMI 27.5
== END 2025-01-24 15:21 | disposition home or self-care (01) ==
LOC: HO.HMCH 14:23
DX: R41.3 Other amnesia (principal); R44.0 Auditory hallucinations; F41.9 Anxiety disorder, unspecified; F32.A Depression, unspecified

== ENCOUNTER → 2025-01-24 14:23 | Outpatient (BNVA) | payer MEDICARE, MEDICAID, SELFPAY | DX: R41.3 Other amnesia (principal); R44.0 Auditory hallucinations; F41.9 Anxiety disorder, unspecified; F32.A Depression, unspecified | CPT/HCPCS: 99212 ==

== ENCOUNTER 2025-03-10 14:03 | Outpatient (AMB) | payer OTHER, MEDICAID, SELFPAY ==
--- OUTSIDE RECORDS SUMMARY | 2025-03-10 14:30 | XMS_ITS | Encounter Summary ---
Author Organization [employer] Address [address] [facility] [address] [place] [address] Care Team Providers Care Singe Machine Operator Name Role Phone Unavailable Primary Care Provider Unavailabl e Encounter Details Date Type Department Care Team (Latest Contact Info) Description 02/28/[address] [facility] CONVERSIONS Dental, Provider, DDS Social History [...]
--- NOTE | 2025-03-10 14:35 | A.OFFPSYCH_ITS ---
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: No Allergies codeine Allergy (Unknown, Verified 04/04/25 11:13) Itching dextromethorphan (Delsym) Allergy (Unknown, Verified 04/04/25 11:13) it put me in the hospital quetiapine (Seroquel) Allergy (Unknown, Verified 04/04/25 11:13) severe swelling meperidine (From DEMEROL) Adverse Reaction (Severe, Verified 04/04/25 11:13) NAUSEA & VOMITING morphine (MORPHINE) Adverse Reaction (Unknown, Verified 04/04/25 11:13) NAUSEA VOMITING Codeine Sulfate Allergy (Unknown, Uncoded 04/04/25 11:13) itching Medication List - Last Reconciled 03/10/25 by Aliza Hilliard APRN albuterol sulfate 90 mcg/actuation 2 puffs inhalation Q6H amitriptyline 75 mg PO BEDTIME amlodipine 10 mg PO DAILY atorvastatin 80 mg PO QPM budesonide-formoterol 160-4.5 mcg/actuation (Symbicort) inhalation clonazepam 1 mg PO TID PRN duloxetine 60 mg PO DAILY metoprolol tartrate 50 mg PO DAILY nitroglycerin 0.4 mg sublingual Q5M PRN omeprazole 20 mg PO DAILY HPI- Psychiatric Chief Complaint: consultation HPI Narrative: Pt referred by PCP for evaluation of medications and recent changes in symptoms; Pt reports she stopped all her medications because her kids were saying she was overmedicated; she went to the ED stating she had brain fog and was hearing voices . No past hx of psychosis. Family and providers questioning if voices are related to possible dementia. P Pt with long histroy of anxiety and depression. Pt comes to appt stating she is back on meds including amitriptyline, duloxetine and clonazepam. She deneis sedation or side effects from theses meds; Her PHQ9=7 and her GAD7=7. She completed a MMSE and scored 29/30 only unable to copy shapes with 10 angles correct. Past Psychiatric History: outpt tx for anxiety, depression x years. Subjective Subjective Subjective Medication Compliance: Yes Side effects from medications: No Review of Systems Medical Review of Systems: unchanged Mental Status Exam Mental Status Exam Patient Appearance: Well Grooomed and Appropriate Patient Orientation: Person, Place, Time and Situation Level of Consciousness: Awake and Appropriate Patient Behavior: Appropriate, Cooperative and Good Eye Contact Mood Description: Appropriate and Anxious Affect Description: Appropriate and Anxious Patient Cognition Impaired: No Ability to Follow Directions: Good Speech Pattern: Clear, Appropriate and Coherent Memory Description: Intact Hallucinations: None Delusions: Not Present Thought Process: Intact and Goal Oriented Thought Content: positive for Intact and positive for Goal Oriented Judgement: Good Assessment and Plan Assessment & Plan (1) Anxiety: Status: Acute Code(s): F41.9 - Anxiety disorder, unspecified (2) Depression: Status: Acute Qualifiers: Depression Type: unspecified Qualified Code(s): F32.A - Depression, unspecified Code(s): F32.A - Depression, unspecified Plan continue clonazepam and duloxetine Medications: Discontinued amitriptyline Discontinued Reason: Patient no longer taking 75 mg PO BEDTIME 30 tabs 0RF Counseling and coordination of Care Pt. Self Management counseling: Exercise, Maintenance-social rhythm, Med illness tx adherence, Mindfulness, Mod caffeine/ETOH intake, Nutrition education and improvement and Sleep hygiene Medication management counseling: Effectiveness, Side effects, Dosing range, Duration and Drug interaction Diagnosis and Prognosis Counseling: Accuracy of diagnosis, Prognosis over time and Adequacy of current interventions Details: I spent 90 minutes reviewing the record, seeing the patient and documenting in the medical record. Counseling provided to the patient/caregiver as outlined below. Addressed patient/caregiver concerns regarding current medication regime including effective adherence. Addressed patient/caregiver concerns regarding diagnosis and prognosis including accuracy of diagnosis, prognosis over time, impact of diagnosis. Addressed patient/caregiver concerns regarding impact of recent stressors. PFSH Surgical History Hx of cholecystectomy Hx of left mastectomy History of intraocular lens implant Family History Father Hypertension Stroke Heart attack Mother Diabetes Daughter No problems noted. Other FH: mental illness Family history of substance abuse Social History Household Members: Family Housing: House Alcohol intake: former Patient Tobacco Use Status: Former Tobacco user Tobacco use type: Cigarette e-Cigarette/Vaping Use: Never Used Second Hand Smoke Exposure: Yes service: No Current occupational status: retired Cognitive needs: No Hearing needs: No Vision needs: No Social History: lives with her daughter, daughter's BF and 12 yr old granddaughter. Pt reports many losses throughout life. 1986 Substance History: none Trauma History: yes Coding Level of Care Code Psych Diag Eval w/Med (45758) Diagnoses Anxiety F41.9 Depression, unspecified depression type F32.A Depression Type: unspecified
== END 2025-03-10 15:32 | disposition home or self-care (01) ==
LOC: HO.HOP 14:03
PROVIDERS: Visit Provider Clinical Nurse Specialist Psychiatric/Mental Health
DX: F41.9 Anxiety disorder, unspecified (principal); F32.A Depression, unspecified
CPT/HCPCS: 90792

== ENCOUNTER → 2025-03-10 14:03 | Outpatient (BNVA) | payer MEDICARE, MEDICAID, SELFPAY | PROVIDERS: Visit Provider Clinical Nurse Specialist Psychiatric/Mental Health | DX: F41.8 Other specified anxiety disorders (principal); F32.A Depression, unspecified; Z79.899 Other long term (current) drug therapy | CPT/HCPCS: 90792 ==

== ENCOUNTER 2025-03-25 09:35 | Outpatient (REF) | payer MEDICARE, SELFPAY ==
--- OUTSIDE RECORDS SUMMARY | 2025-03-25 10:13 | XMS_ITS | Encounter Summary ---
Author Organization [employer] Address [address] [facility] [address] [place] [address] Care Team Providers Care Sleeve Turner Name Role Phone Unavailable Primary Care Provider Unavailabl e Encounter Details Date Type Department Care Team (Latest Contact Info) Description 02/28/2019 Abstract [facility] CONVERSIONS Dental, Provider, DDS [...]
== END 2025-03-25 09:36 | disposition home or self-care (01) ==
LOC: HO.SH 09:35
DX: Z01.118 Encounter for examination of ears and hearing with other abnormal findings (principal); H90.3 Sensorineural hearing loss, bilateral; H93.13 Tinnitus, bilateral
CPT/HCPCS: 92557; 92567

== ENCOUNTER 2025-04-04 10:57 | Outpatient (AMB) | payer MEDICARE, MEDICAID, SELFPAY ==
[2025-04-04 11:04] VITALS: BP 120/76; PULSE 69; TEMP 36.5; O2SAT 96; BMI 27.6
--- NOTE | 2025-04-04 11:04 | MHC.PC.OV ---
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 Accompanied by: Self / Same As Patient Allergies codeine Allergy (Unknown, Verified 04/04/25 11:13) Itching dextromethorphan (Delsym) Allergy (Unknown, Verified 04/04/25 11:13) it put me in the hospital quetiapine (Seroquel) Allergy (Unknown, Verified 04/04/25 11:13) severe swelling meperidine (From DEMEROL) Adverse Reaction (Severe, Verified 04/04/25 11:13) NAUSEA & VOMITING morphine (MORPHINE) Adverse Reaction (Unknown, Verified 04/04/25 11:13) NAUSEA VOMITING Codeine Sulfate Allergy (Unknown, Uncoded 04/04/25 11:13) itching Medication List - Last Reconciled 04/04/25 by Kayla Arevalo PA-C albuterol sulfate 90 mcg/actuation 2 puffs inhalation Q6H amitriptyline 50 mg PO BEDTIME amitriptyline 10 mg PO BEDTIME amlodipine 10 mg PO DAILY atorvastatin 80 mg PO QPM budesonide-formoterol 160-4.5 mcg/actuation (Symbicort) inhalation clonazepam 1 mg PO TID PRN duloxetine 60 mg PO DAILY metoprolol tartrate 50 mg PO DAILY nitroglycerin 0.4 mg sublingual Q5M PRN omeprazole 20 mg PO DAILY Tobacco use date assessed: 04/04/25 Fall risk assessment: No Falls in past year Last assessed Fall Risk: 04/04/25 Dental Screening Dental Screen Date: 04/04/25 Did you have a dental visit in the last 12 months?: Yes Did you have a dental problem in the last 6 months where you did not have access to dental care?: No Was dental information given to patient?: Patient has dentist HPI annual exam/2mth f/u - see comments HPI Details 75-year-old female past medical history of anxiety, depression, GERD, COPD, hypertension, hypercholesterolemia, obstructive sleep apnea memory impairment last seen 01/2025 coming in for annual exam. Presenting for a wellness visit and management of chronic conditions. No acute concerns today. Overall feeling generally well Mammogram: ordered DEXA: ordered Eye exam: does not currently have one Colonoscopy: Cologuard UTD vaccines: Due to Td today PFSH Surgical History Hx of cholecystectomy Hx of left mastectomy History of intraocular lens implant Family History Father Hypertension Stroke Heart attack Mother Diabetes Daughter No problems noted. Other FH: mental illness Family history of substance abuse Social History Household Members: Family Housing: House Alcohol intake: former Patient Tobacco Use Status: Former Tobacco user Tobacco use type: Cigarette e-Cigarette/Vaping Use: Never Used Second Hand Smoke Exposure: Yes service: No Current occupational status: retired Cognitive needs: No Hearing needs: No Vision needs: No Questionnaire PHQ-9 Over the last 2 weeks, how often have you been bothered by any of the following problems? 1. Little interest or pleasure in doing things: nearly every day 2. Feeling down, depressed, or hopeless: nearly every day 3. Trouble falling or staying asleep, or sleeping too much: nearly every day 4. Feeling tired or having little energy: nearly every day 5. Poor appetite or overeating: not at all 6. Feeling bad about yourself - or that you are a failure or have let yourself or your family down: nearly every day 7. Trouble concentrating on things, such as reading the newspaper or watching television: several days 8. Moving or speaking so slowly that other people could have noticed. Or the opposite - being so fidgety or restless that you have been moving around a lot more than usual: more than half the days 9. Thoughts that you would be better off or of hurting yourself in some way: several days Total score: 19 Depression Screening Interpretation: Positive Depression Screening Follow-up: Existing condition and In treatment Depression Screening Done: Yes Source: Developed by Drs. Davis Parrish, Shikha Sands, Elver Berrios and colleagues, with an educational haydee from [employer]. Thrive Questionnaire Date Thrive assessed: 04/04/25 I am a: Parent/Caregiver What is your living situation today?: I have a steady place to live Within the past 12 months, did the food you bought not last and you didn't have the money to get more?: Often true Within the past 12 months, did you worry whether your food would run out before you got money to buy more?: Often true Do you have trouble paying for medicines?: No Do you have trouble getting transportation to medical appointments?: No Do you have trouble paying your heating and electricity bill?: No Do you have trouble taking care of your child, family member or friend?: No Do you have trouble with day-to-day activities such as bathing, preparing meals, shopping, managing finances, etc.?: Yes Are you currently unemployed and looking for a job?: No Are you interested in more education?: No Please select the resources that you would like help with: None Currently or been in a relationship where the following occur: No concerns reported THRIVE Score: 2 JUSTYN-7 AMB Questionnaire JUSTYN-7 Date JUSTYN - 7 assessed: 04/04/25 Source: Developed by Drs. Davis Parrish, Shikha Sands, Elver Berrios and colleagues, with an educational haydee from [employer]. Review of Systems Const Denies body aches, Denies chills, Denies fever(s), Denies headache(s) and Denies poor appetite Eyes Reports no additional complaints ENT Denies dysphagia, Denies dizziness, Denies headache(s) and Denies odynophagia Card Denies chest pain (none recently ), Denies syncope, Denies edema, Denies irregular heart rhythm, Denies lightheadedness, Denies dyspnea and Denies dyspnea on exertion Resp Denies cough, Denies dyspnea and Denies dyspnea on exertion GI Denies abdominal pain, Reports constipation (occasional ), Denies dysphagia, Denies diarrhea, Denies nausea, Denies odynophagia and Denies vomiting Reports no additional complaints Musc Reports no additional complaints and Denies abnormal gait Skin/Breast Reports system reviewed and no additional complaints, except as documented Neuro Denies abnormal gait, Denies dizziness, Denies syncope and Denies headache(s) Psych Reports no additional complaints Physical exam (Primary Care) Vital Signs: Last Vital Signs Temp 97.7 F 04/04/25 11:04 Pulse 69 04/04/25 11:04 BP 120/76 04/04/25 11:04 Pulse Ox 96 04/04/25 11:04 Oxygen Delivery Method Room Air 04/04/25 11:04 BMI result Body Mass Index 27.6 Tobacco/Smoking Status: Tobacco use Status Tobacco use date assessed 04/04/25 04/04/25 11:10 Patient Tobacco Use Status Former Tobacco user 04/04/25 11:10 Tobacco use type Cigarette 04/04/25 11:10 e-Cigarette/Vaping Use Never Used 04/04/25 11:10 PHQ-9: PHQ-9 Score PHQ-9: Total score 19 04/04/25 11:30 Depression Screening Interpretation: Positive Depression Screening Follow-up: Existing condition and In treatment Thrive Assessment: Date of Thrive Assessment Date Thrive assessed 04/04/25 04/04/25 11:10 Currently or been in a relationship where the following occur: No concerns reported Const General: cooperative, healthy appearing, comfortable and no acute distress Orientation/consciousness: patient oriented x3 HENMT Head: Yes normocephalic Ears: hearing grossly normal bilaterally, external ears normal, TM's normal bilaterally and EAC's normal General nose exam: Normal external nose present Face and sinus: Yes normal facial exam and Yes sinuses nontender Mouth: Normal oral and palatal mucosa present and tongue normal Throat: Yes posterior oropharynx normal Eyes General: appearance normal, both eyes and all related structures Conjunctivae: conjunctivae normal Pupils: Equal, round and reactive pupils present EOM: EOMs intact bilaterally and No Nystagmus present Neck Neck: Yes normal visual inspection, Yes full ROM and Yes no lymphadenopathy Chest Chest palpation & inspection: normal inspection of the chest Resp Effort & Inspection: normal respiratory effort Auscultation: clear to auscultation bilaterally, no crackles, no rales, no rhonchi, no wheezes and breath sounds present Cardio Rate: regular rate Rhythm: regular rhythm Peripheral pulses: radial pulses present and dorsalis pedis present GI Inspection: Yes normal to inspection and No Abdominal wall edema Palpation (GI): Soft to palpation, not firm and nontender Auscultation: normal bowel sounds Rectal Exam - Female: deferred General: Yes no CVA tenderness Back/Spine/Pelvis Back: no CVA tenderness Skin General skin exam: no rashes or lesions noted Neuro General: patient oriented x3 Cranial nerves: Yes Equal, round and reactive pupils present, Yes Midline tongue present, Yes Ability to bilaterally elevate shoulders present and No Nystagmus present Gait exam (Neuro): Normal gait present Extrem General: Yes normal to inspection, Yes full ROM, No no pedal edema and No edema Psych Speech and movement: Normal speech and movement present Affect: normal affect Insight: Good insight present (Psych) Judgement: Good judgement present (Psych) Immunizations Tenivac (PF) 5 Lf unit-2 Lf unit/0.5 mL intramuscular syringe Performing Provider: Kayla Arevalo PA-C Performing [facility] Administered by: LORRAINE Ferrell on 04/04/25 11:58 Dose Route Admin Location Dispensed Lot Number Expiration Date [facility] 0.5 mL IM Left Deltoid 0.5 mL [id number] 12/03/26 21345-134-17 [employer] Total Dispensed Waste 0.5 mL 0 % VIS Given Date VIS Provided VIS Publication Date 04/04/25 Single Vaccine 21 Eligibility Eligibility Date Funding Source Not [facility] Eligible 04/04/25 Private Coding Level of Care Code Est Pt Prev Care >65y(93595) Diagnoses Annual physical exam Z00.00 Anxiety F41.9 Depression F32.A Primary hypertension I10 Hypertension type: primary hypertension Hypercholesterolemia E78.00 Gastroesophageal reflux disease without esophagitis K21.9 Esophagitis presence: without esophagitis COPD (chronic obstructive pulmonary disease) J44.9 Primary insomnia F51.01 Insomnia type: primary Memory impairment R41.3 Hearing loss H91.90 Assessment & Plan Assessment & Plan (1) Annual physical exam: Code(s): Z00.00 - Encounter for general adult medical examination without abnormal findings Category: Medical Plan: Patient is overdue for mammogram and bone density screening which was ordered today. She states she completed her Cologuard box earlier this year. She is up-to-date on her vaccines and TD was given in the office today. Reminded patient about blood work as she is overdue for updated blood work. Healthy diet and regular exercise is encouraged. (2) Anxiety: Code(s): F41.9 - Anxiety disorder, unspecified Category: Medical Plan: Plan to continue on duloxetine and amitriptyline for management of anxiety and depression. I did discuss the importance of taking the medications as prescribed. She is currently on duloxetine, clonazepam, amitriptyline. Continue to follow up outpatient psych clinic (3) Depression: Code(s): F32.A - Depression, unspecified Category: Medical Plan: See above (4) Hypertension: Code(s): I10 - Essential (primary) hypertension Category: Medical Qualifiers: Hypertension type: primary hypertension Qualified Code(s): I10 - Essential (primary) hypertension Plan: Continue on current blood pressure medication. Avoid salt intake and encourage healthy diet and regular exercise. (5) Hypercholesterolemia: Code(s): E78.00 - Pure hypercholesterolemia, unspecified Category: Medical Plan: Avoid foods that are high in cholesterol such as red meat, fried foods, eggs and baked goods. Triglyceride goal of less than 150 and LDL goal of less than 100. Continue on atorvastatin 80. Reminded about blood work (6) GERD (gastroesophageal reflux disease): Code(s): K21.9 - Gastro-esophageal reflux disease without esophagitis Category: Medical Qualifiers: Esophagitis presence: without esophagitis Qualified Code(s): K21.9 - Gastro-esophageal reflux disease without esophagitis Plan: Avoid trigger foods such as citrus, tomato products, soda, caffeine, spicy foods and other foods that may be irritating to your stomach. Avoid laying flat 3-4 hours after eating and elevate the head of the bed 30 degrees to prevent acid from moving into the esophagus. (7) COPD (chronic obstructive pulmonary disease): Code(s): J44.9 - Chronic obstructive pulmonary disease, unspecified Category: Medical Plan: Continue on current inhalers; breathing well managed at this time. (8) Insomnia: Code(s): G47.00 - Insomnia, unspecified Category: Medical Qualifiers: Insomnia type: primary Qualified Code(s): F51.01 - Primary insomnia Plan: Continue on current medication for insomnia. (9) Memory impairment: Code(s): R41.3 - Other amnesia Category: Medical Plan: MRI completed 01/2025 normal with nonspecific findings possibly reflecting chronic small vessel disease. She is currently following with neurology and we will plan to obtain these notes. (10) Hearing loss: Code(s): H91.90 - Unspecified hearing loss, unspecified ear Category: Medical Plan: Recent hearing test that showed moderate to severe hearing loss. She is declining hearing aids at this time. Plan The patient will receive a tetanus vaccination during this visit to ensure up-to-date immunization status. A mammogram has been ordered to maintain routine breast cancer screening, which is typically covered by insurance. The patient is advised to complete fasting blood work, requiring 8 to 10 hours of fasting prior to the test, to monitor her overall health status. Regarding her hearing loss, the patient has declined the use of hearing aids at this time, despite the moderate to severe loss identified in her recent hearing test. The patient is advised to continue using prescribed medication for her eye watering and to address any billing issues with her eye care provider. No current intervention is required for her history of leg swelling, as no swelling was observed during this visit. The patient is encouraged to follow up with any concerns or changes in her health status. This note was constructed using voice recognition software. While every effort has been made to ensure accuracy and tobacco cutter, still areas may have been included sometimes these areas may affect the content or meeting of the given symptoms. Total time spent caring for the patient today was 30 minutes. This includes time spent before the visit reviewing the chart, time spent during the visit, and time spent after the visit and documentation. Patient was informed and verbally consented to the use of an ambient scribe for clinic note documentation during this visit. Orders: Orders MM tomosynthesis screening BI Today Z12.31 - Encounter for screening mammogram for malignant neoplasm of breast XR DEXA axial skeleton Today Z78.0 - Asymptomatic menopausal state Td Immunization Today Z23 - Encounter for immunization Medications: Refilled amitriptyline with 10mg tablet for combined dose of 60 mg 50 mg PO BEDTIME 90 tabs 0RF amitriptyline with 50mg tablet for combined dose of 60mg 10 mg PO BEDTIME 90 tabs 0RF
--- OUTSIDE RECORDS SUMMARY | 2025-04-04 11:06 | XMS_ITS | Encounter Summary ---
Author Organization [employer] Address [address] [place] [address] Care Team Providers Care Tobacco Sampler Name Role Phone Unavailable Primary Care Provider Unavailabl e Encounter Details Date Type Department Care Team (Latest Contact Info) Description 02/28/2019 Abstract [facility] CONVERSIONS Dental, Provider, DDS Social History [...]
== END 2025-04-04 12:01 | disposition home or self-care (01) ==
LOC: HO.HMCH 10:58
DX: Z00.00 Encounter for general adult medical examination without abnormal findings (principal); J44.9 Chronic obstructive pulmonary disease, unspecified; F41.9 Anxiety disorder, unspecified; H91.93 Unspecified hearing loss, bilateral; F32.A Depression, unspecified; I10 Essential (primary) hypertension; E78.00 Pure hypercholesterolemia, unspecified; K21.9 Gastro-esophageal reflux disease without esophagitis; F51.01 Primary insomnia; R41.3 Other amnesia; Z23 Encounter for immunization

== ENCOUNTER → 2025-04-04 10:57 | Outpatient (BNVA) | payer MEDICARE, OTHER, SELFPAY | DX: Z00.00 Encounter for general adult medical examination without abnormal findings (principal); Z23 Encounter for immunization; F41.9 Anxiety disorder, unspecified; F32.A Depression, unspecified; I10 Essential (primary) hypertension; E78.00 Pure hypercholesterolemia, unspecified; K21.9 Gastro-esophageal reflux disease without esophagitis; J44.9 Chronic obstructive pulmonary disease, unspecified; F51.01 Primary insomnia; R41.3 Other amnesia; H91.90 Unspecified hearing loss, unspecified ear | CPT/HCPCS: 90471; 90714; 99397 ==

== ENCOUNTER 2025-04-14 11:17 | Outpatient (REF) | payer MEDICARE, SELFPAY ==
[2025-04-14 11:31] LABS: MANUAL DIFF FLAG NO
[2025-04-14 11:44] LABS: Hematocrit 36.4 % (37.0-47.0); Hemoglobin 12.5 g/dl (12.0-16.0); Imm Gran Abs Auto 0.02 X10*3/uL (0.00-0.03); Imm Gran Pct Auto 0.4 % (0.0-0.4); Lymphocytes Absolute Auto 1.5 X10*3/uL (1.2-4.9); Mean Corpuscular HGB Conc 34.3 g/dl (31.0-35.0); Mean Corpuscular Hemoglobin 30.6 pg (27.0-33.0); Mean Corpuscular Volume 89.0 fL (80.0-98.0); NRBC Abs Auto 0.000 X10*3/uL (0.0-0.012); NRBC Pct Auto 0.0 /100WBC (0.0-0.2); Platelet Count 275 X10*3/uL (160-400); Red Blood Count 4.09 X10*6/uL (4.20-5.50); White Blood Count 5.0 X10*3/uL (4.8-10.8)
--- OUTSIDE RECORDS SUMMARY | 2025-04-14 11:59 | XMS_ITS | Encounter Summary ---
Author Organization [employer] Address [address] [facility] [address] [place] [address] Care Team Providers Care Vocational Rehabilitation Supervisor Name Role Phone Unavailable Primary Care Provider Unavailabl e Encounter Details Date Type Department Care Team (Latest Contact Info) Description 02/28/2019 Abstract [facility] CONVERSION[facility] Dental, Provider, DDS Social History [...]
[2025-04-14 12:29] LABS: Alanine Aminotransferase 19 U/L (0-31); Albumin Level 4.5 g/dL (3.5-5.0); Alkaline Phosphatase 107 U/L (39-117); Anion Gap 13 (12-20); Aspartate Amino Transferase 26 U/L (5-31); Blood Urea Nitrogen 28 mg/dL (9-16); Calcium 9.3 mg/dL (8.4-10.2); Carbon Dioxide 32 mmol/L (22-29); Chloride 103 mmol/L (96-108); Cholesterol 194 mg/dL (<200); Estimated Glomerular Filt Rate 54; HDL Cholesterol 59 mg/dL (>40); Potassium 4.7 mmol/L (3.3-5.1); Sodium 143 mmol/L (135-145); Total Protein 7.6 g/dL (6.5-8.0); Triglycerides 87 mg/dL (<150)
[2025-04-14 12:32] LABS: Hemoglobin A1C 146.1274 umol/L; Total Hemoglobin (HGBA1C) 3177.2537 umol/L
[2025-04-14 12:51] LABS: Free T4 (Free Thyroxine) 1.00 ng/dL (0.71-1.85)
[2025-04-14 12:57] LABS: Folate 10.6 ng/mL (> or = 4.0); Vitamin B12 1096 pg/mL (200-900)
== END 2025-04-14 11:18 | disposition home or self-care (01) ==
LOC: HO.LAB 11:17
DX: Z13.1 Encounter for screening for diabetes mellitus (principal); Z00.00 Encounter for general adult medical examination without abnormal findings; E78.00 Pure hypercholesterolemia, unspecified
CPT/HCPCS: 36415; 80053; 80061; 82306; 82607; 82746; 83036; 84439; 84443; 85025

== ENCOUNTER 2025-05-27 14:17 | Outpatient (REF) | payer MEDICARE, SELFPAY ==
--- OUTSIDE RECORDS SUMMARY | 2025-05-27 17:32 | XMS_ITS | Encounter Summary ---
Author Organization [employer] Address [address] [facility] [address] [place] [address] Care Team Providers Care Looper Operator Name Role Phone Unavailable Primary Care Provider Unavailabl e Reason for Visit * Reason Onset Date Comments Appointment 10/05/2022 Patient has had to cancel appt twice due to no transportation but would like to reschedule appt with Dr. Small when possible. Please reach out to patient. Encounter Details Date Type Department Care Team ([facility] st Contact Info) Description 10/05/2022 Telephone [facility] [address] [place], [place] [phone] Nick Small, DMD [address], [place] [phone] Appointment (Patient has had to cancel appt [...]
--- OUTSIDE RECORDS SUMMARY | 2025-05-27 17:32 | XMS_ITS | Encounter Summary ---
Author Organization [employer] Address [address] [facility] [address] [facility] [address] [place] [address] Care Team Providers Care Public Policy Associate Name Role Phone Unavailable Primary Care Provider Unavailabl e Encounter Details Date Type Department Care Team (Latest Contact Info) Description 02/28/2019 Abstract [facility] CONVERSIONS Dental, Provider, DDS Social History [...]
--- OUTSIDE RECORDS SUMMARY | 2025-05-27 17:32 | XMS_ITS | Clinical Summary ---
Author Organization [employer] Address [address] [facility] [address] [place] [address] Care Team Providers Care Banquet Chef Name Role Phone Unavailable Primary Care Provider [...] 02/26/2019 Dental X-Ray: Bitewings 11/19/2023 11/17/2022, 02/26 DTaP/Tdap/Td Vaccines (4 - Td or Tdap) 07/13/2024 07/13/2014, 03/18/2013, 06/05/2012 COVID-19 Vaccine (4 - season) 2025 05/29/2021, 11/30/2020, 11/09/2020 Influenza Vaccine (#1) 2025 , 06/06/2020, 06/04/2020, Additional history exists Dental X-Ray: Full Mouth 11/18/2025 11/17/2022, 02/03 [...] patient's age to complete this topic Meningococcal B Vaccine Aged Out No l onger eligible based on patient's age to complete [...]
== END 2025-05-27 14:18 | disposition home or self-care (01) ==
LOC: HO.MAMMO 14:17
DX: Z12.31 Encounter for screening mammogram for malignant neoplasm of breast (principal)
CPT/HCPCS: 77063; 77067

== ENCOUNTER → 2025-05-27 14:30 | Outpatient (BNV) | payer MEDICARE, SELFPAY | PROVIDERS: Visit Provider Radiology Body Imaging | DX: Z12.31 Encounter for screening mammogram for malignant neoplasm of breast (principal) | CPT/HCPCS: 77063; 77067 ==

== ENCOUNTER 2025-06-05 12:50 | Outpatient (AMB) | payer MEDICARE, MEDICAID, SELFPAY ==
--- NOTE | 2025-06-05 12:58 | MHC.OFFVIS ---
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(unspecified) Allergies codeine Allergy (Unknown, Verified 04/04/25 11:13) Itching dextromethorphan (Delsym) Allergy (Unknown, Verified 04/04/25 11:13) it put me in the hospital quetiapine (Seroquel) Allergy (Unknown, Verified 04/04/25 11:13) severe swelling meperidine (From DEMEROL) Adverse Reaction (Severe, Verified 04/04/25 11:13) NAUSEA & VOMITING morphine (MORPHINE) Adverse Reaction (Unknown, Verified 04/04/25 11:13) NAUSEA VOMITING Codeine Sulfate Allergy (Unknown, Uncoded 04/04/25 11:13) itching Medication List - Last Reconciled 06/05/25 by Indra Stratton MD albuterol sulfate 90 mcg/actuation 2 puffs inhalation Q6H amitriptyline 50 mg PO BEDTIME amitriptyline 10 mg PO BEDTIME amlodipine 10 mg PO DAILY atorvastatin 80 mg PO QPM budesonide-formoterol 160-4.5 mcg/actuation (Symbicort) 1 inh inhalation BID clonazepam 1 mg PO TID PRN duloxetine 60 mg PO DAILY metoprolol tartrate 50 mg PO DAILY nitroglycerin 0.4 mg sublingual Q5M PRN omeprazole 20 mg PO DAILY HPI Comments Details: The patient is a 75-year-old female presenting with chest pain. The chest pain is described as located centrally, lasting about four to five minutes, and is sometimes accompanied by jaw tightness. The patient has been experiencing these episodes for a couple of years, with occurrences ranging from once a month to once every three or four months. The pain is not typically associated with physical exertion, as the patient reports being able to climb stairs without experiencing pain, although she feels exhausted afterward. The pain often occurs when the patient is at rest, such as lying down or sitting. The patient has a history of breast cancer.. She reports significant fatigue with walking, attributed to the past surgical procedures. The patient has a history of smoking, which she quit before her cancer diagnosis. She also experiences anxiety, which can be severe if not managed with medication. [facility] Medical History (Updated 06/05/25 @ 13:19 by Indra Stratton MD) COPD (chronic obstructive pulmonary disease) Asthma Surgical History Hx of cholecystectomy Hx of left mastectomy History of intraocular lens implant Family History Father Hypertension Stroke Heart attack Mother Diabetes Daughter No problems noted. Other FH: mental illness Family history of substance abuse Social History Household Members: Family Housing: House Alcohol intake: former Patient Tobacco Use Status: Former Tobacco user Tobacco use type: Cigarette e-Cigarette/Vaping Use: Never Used Second Hand Smoke Exposure: Yes service: No Current occupational status: retired Cognitive needs: No Hearing needs: No Vision needs: No Review of Systems Const Denies weakness ENT Denies dizziness Card Reports chest pain, Denies chest pain with activity, Denies syncope, Denies rapid heart rate, Denies pedal edema, Denies edema, Denies leg edema, Denies lightheadedness, Reports radiating jaw, neck or arm pain, Denies palpitations, Reports dyspnea, Denies dyspnea on exertion and Denies orthopnea Resp Denies cough, Reports dyspnea and Denies dyspnea on exertion GI Denies hematochezia and Denies change in stool character Musc Denies abnormal gait, Denies muscle cramps, Denies muscle weakness, Denies numbness, Denies radiating pain into limb and Denies tingling Neuro Denies abnormal gait, Denies dizziness, Denies syncope, Denies numbness, Denies tingling and Denies weakness Endo Denies palpitations Physical Exam Vital Signs: Last Vital Signs Pulse 67 06/05/25 12:59 BP 122/60 06/05/25 12:59 BMI result Body Mass Index 28.6 Const General: comfortable and no acute distress Orientation/consciousness: patient oriented x3 HEENT Other: Unremarkable Head: Yes normal to inspection Neck Neck: Yes normal visual inspection Chest Chest palpation & inspection: normal inspection of the chest Resp Auscultation: clear to auscultation bilaterally Cardio Palpation: normal PMI Heart sounds: S1 normal heart sound present, S2 normal heart sound present, no gallops, no murmurs and no rubs GI Palpation (GI): Soft to palpation Back/Spine/Pelvis Other: unremarkable Skin General skin exam: no rashes or lesions noted Neuro General: patient oriented x3 Extrem General: Yes normal to inspection Psych Mental Status: mental status grossly normal Assessment & Plan Assessment & Plan (1) Precordial chest pain: Code(s): R07.2 - Precordial pain Category: Medical Plan EKG with sinus bradycardia at 48/Min; cannot exclude old septal infarct but more likely from body habitus; normal VT and corrected QT. Septal changes seen in prior EKGs going back to 2013. Myocardial perfusion imaging study shows normal perfusion. Normal gated LVEF. Overall, the fact that she is describing pain more so at rest than at exertion and with normal stress perfusion most likely suggests noncardiac cause of chest pain. Advised her that if indeed becomes more of an exertional type pain, then she will need to contact us immediately. She understands that. Otherwise, we will check an echocardiogram as well for completion. Discussion Notes I discussed with the patient the need for further cardiac evaluation through an echocardiogram to assess for any structural heart issues. We reviewed the recent normal stress test results, which suggest a low likelihood of coronary artery disease. I advised the patient to be vigilant about symptoms during physical activity, as pain at rest is less typical of angina. Patient was informed and verbally consented to the use of an ambient scribe for clinic note documentation during this visit. Orders: Orders CA echo transthoracic complete Today R07.2 - Precordial pain Patient Instructions: - Monitor for chest pain, especially during physical activity. - Continue taking anxiety medication as prescribed. - Follow up for an echocardiogram as scheduled. Coding Level of Care Code New Pt Level 4 (42850) Diagnoses Precordial chest pain R07.2
[2025-06-05 12:59] VITALS: BP 122/60; PULSE 67; BMI 28.6
--- OUTSIDE RECORDS SUMMARY | 2025-06-05 14:18 | XMS_ITS | Encounter Summary ---
Author Organization [employer] Address [address] [facility] [address] [place] [address] Care Team Providers Care International Marketing Coordinator Name Role Phone Unavailable Primary Care Provider Unavailabl e Reason for Visit * Reason Onset Date Comments Appointment 10/05/2022 Patient has had to cancel appt twice due to no transportation but would like to reschedule appt with Dr. Small when possible. Please reach out to patient. Encounter Details Date Type Department Care Team ([facility] st Contact Info) Description 10/05/[address] [facility] ADULT D[facility]AL [address] [place], [place] [phone] Nick Small, DMD [address] [place], [place] [phone] Appointment (Patient has had to cancel appt [...]
--- OUTSIDE RECORDS SUMMARY | 2025-06-05 14:18 | XMS_ITS | Clinical Summary ---
Author Organization [employer] Address [address] [place] [address] Care Team Providers Care Coconut Candy Maker Name Role Phone Unavailable Primary Care Provider [...]
--- OUTSIDE RECORDS SUMMARY | 2025-06-05 14:18 | XMS_ITS | Encounter Summary ---
Author Organization [employer] Address [address] [facility] [address] [place] [address] Care Team Providers Care Parts Washer Name Role Phone Unavailable Primary Care Provider Unavailabl e Encounter Details Date Type Department Care Team (Latest Contact Info) Description 02/28/2019 Abstract [facility] CONVERSIONS Dental, Provider, DDS Social [...]
== END 2025-06-05 13:23 | disposition home or self-care (01) ==
LOC: HO.HCS 12:51
PROVIDERS: Visit Provider Internal Medicine
DX: R07.2 Precordial pain (principal)
CPT/HCPCS: 99204

== ENCOUNTER → 2025-06-05 12:50 | Outpatient (BNVA) | payer MEDICARE, OTHER, SELFPAY | PROVIDERS: Visit Provider Internal Medicine | DX: R07.2 Precordial pain (principal) | CPT/HCPCS: 99202 ==

== ENCOUNTER 2025-07-02 10:15 | Outpatient (REF) | payer MEDICARE, SELFPAY ==
--- NOTE | ~2025-07-02 | MM_ITS ---
EXAMINATION: MM DIAGNOSTIC DIGITAL BREAST TOMOSYNTHESIS, RIGHT Right limited ultrasound. CLINICAL INFORMATION: Call back from screening for asymmetry in the superior right breast anterior depth on MLO view. COMPARISON: Mammography: [facility] on PACS. TECHNIQUE: Digital breast tomosynthesis is performed in both the craniocaudal and mediolateral oblique views along with computer-aided detection (CAD). Synthesized 2D images are generated from the tomosynthesis. FINDINGS: There are scattered areas of fibroglandular density. Asymmetry in the superior right breast anterior depth on MLO view does not persist on additional imaging projections. No suspicious masses calcifications or other abnormal findings. Post reduction mammoplasty changes are stable. Targeted color Doppler ultrasound scanning in the superior right breast from 10-2 o'clock demonstrates normal fibroglandular breast tissue. There is no sonographic abnormal finding. MM/MM tomosynthesis added views R IMPRESSION: No mammographic evidence of malignancy. ASSESSMENT: BI-RADS Category 1: Negative RECOMMENDATION: 1 year F/U Results were provided to the patient at time of visit by the technologist. This patient's information was entered into a reminder system with a target due date for their next mammogram. Electronically signed by: Trang Jamil DO 07/02/2025 11:22 AM EDT
--- OUTSIDE RECORDS SUMMARY | 2025-07-02 12:43 | XMS_ITS | Encounter Summary ---
Author Organization [employer] Address [address] [facility] [address] [place] [address] Care Team Providers Care News Wire Photo Operator Name Role Phone Unavailable Primary Care Provider Unavailabl e Reason for Visit * Reason Onset Date Comments Appointment 10/05/2022 Patient has had to cancel appt twice due to no transportation but would like to reschedule appt with Dr. Small when possible. Please reach out to patient. Encounter Details Date Type Department Care Team ([facility] st Contact Info) Description 10/05/2022 Telephone [facility] ADULT DENTAL [address] [place], [place] [phone] Nick Small, DMD [address] [place], [place] [phone] Appointment (Patient has had to cancel appt [...]
--- OUTSIDE RECORDS SUMMARY | 2025-07-02 12:43 | XMS_ITS | Encounter Summary ---
Author Organization [employer] Address [address] [facility] [address] [place] [address] Care Team Providers Care Certified Master Safe Technician Name Role Phone Unavailable Primary Care Provider Unavailabl e Encounter Details Date Type Department Care Team (Latest Contact Info) Description 02/28/2019 Abstract [facility] CONVERSIONS Dental, Provider, DDS Social History [...]
--- OUTSIDE RECORDS SUMMARY | 2025-07-02 12:43 | XMS_ITS | Clinical Summary ---
Author Organization [employer] Address [address] [facility] [address] [place] [address] Care Team Providers Care Horse Rider Name Role Phone Unavailable Primary Care Provider [...]
== END 2025-07-02 10:16 | disposition home or self-care (01) ==
LOC: HO.MAMMO 10:15
DX: N64.89 Other specified disorders of breast (principal)
CPT/HCPCS: 76642; 77061; 77065

== ENCOUNTER → 2025-07-02 10:30 | Outpatient (BNV) | payer MEDICARE, SELFPAY | PROVIDERS: Visit Provider Internal Medicine | DX: R92.8 Other abnormal and inconclusive findings on diagnostic imaging of breast (principal) | CPT/HCPCS: 77065; G0279 ==

== ENCOUNTER 2025-07-08 10:52 | Outpatient (AMB) | payer MEDICARE, SELFPAY ==
[2025-07-08 10:56] VITALS: BP 130/80; PULSE 62; TEMP 36.2; O2SAT 92; BMI 30.1
--- NOTE | 2025-07-08 10:56 | MHC.PC.OV ---
Vital Signs 07/08/25 10:56 Height 4 ft 9 in Weight 139 lb BMI 30.1 BP 130/80 Blood Pressure Location Rt radial Position Sitting Pulse 62 Pulse Source Pulse Oximeter Temp 97.1 F Temp Source Temporal Artery Scan Pulse Oximetry (%) 92 Oxygen Delivery Method Room Air Intake Visit Reasons: f/u memory and blood work - see comments Web Assistant Required: No Accompanied by: Self / Same As Patient Allergies codeine Allergy (Unknown, Verified 07/08/25 11:14) Itching dextromethorphan (Delsym) Allergy (Unknown, Verified 07/08/25 11:14) it put me in the hospital quetiapine (Seroquel) Allergy (Unknown, Verified 07/08/25 11:14) severe swelling meperidine (From DEMEROL) Adverse Reaction (Severe, Verified 07/08/25 11:14) NAUSEA & VOMITING morphine (MORPHINE) Adverse Reaction (Unknown, Verified 07/08/25 11:14) NAUSEA VOMITING Codeine Sulfate Allergy (Unknown, Uncoded 07/08/25 11:14) itching Medication List - Last Reconciled 07/08/25 by Kalya Arevalo PA-C albuterol sulfate 90 mcg/actuation 2 puffs inhalation Q6H amitriptyline 10 mg PO BEDTIME amitriptyline 50 mg PO BEDTIME amlodipine 10 mg PO DAILY atorvastatin 80 mg PO QPM budesonide-formoterol 160-4.5 mcg/actuation (Symbicort) 1 inh inhalation BID clonazepam 1 mg PO TID PRN duloxetine 60 mg PO DAILY metoprolol tartrate 50 mg PO DAILY nitroglycerin 0.4 mg sublingual Q5M PRN omeprazole 20 mg PO DAILY Tobacco use date assessed: 07/08/25 Fall risk assessment: No Falls in past year Last assessed Fall Risk: 04/04/25 Dental Screening Dental Screen Date: 04/04/25 Did you have a dental visit in the last 12 months?: Yes Did you have a dental problem in the last 6 months where you did not have access to dental care?: No Was dental information given to patient?: Patient has dentist HPI f/u memory and blood work - see comments HPI Details 75-year-old female with past medical history of anxiety, depression, GERD, COPD, hypertension, hypercholesterolemia, obstructive sleep apnea, memory impairment last seen 04/28 coming in for follow up. In review of the notes, patient was seen by Cardiology 06/05/2025 echocardiogram and continue to monitor for chest pain. Presenting for a follow-up visit for chronic condition management. Her lab work from April showed an elevated A1c that was close to the diabetic range, and her cholesterol had also increased. Regarding her COPD, the patient reports not using her Symbicort twice a day as prescribed, but rather only as needed, and has a surplus of four albuterol inhalers and two Symbicort inhalers at home. She reports a sensation of not being able to take a full breath. The patient states her GERD symptoms have been flaring up, waking her two to three times per night. [facility] Medical History COPD (chronic obstructive pulmonary disease) Asthma Surgical History Hx of cholecystectomy Hx of left mastectomy History of intraocular lens implant Family History Father Hypertension Stroke Heart attack Mother Diabetes Daughter No problems noted. Other FH: mental illness Family history of substance abuse Social History Household Members: Family Housing: House Alcohol intake: former Patient Tobacco Use Status: Former Tobacco user Tobacco use type: Cigarette e-Cigarette/Vaping Use: Never Used Second Hand Smoke Exposure: No service: No Current occupational status: retired Cognitive needs: No Hearing needs: No Vision needs: No Questionnaire PHQ-9 Over the last 2 weeks, how often have you been bothered by any of the following problems? 1. Little interest or pleasure in doing things: nearly every day 2. Feeling down, depressed, or hopeless: nearly every day 3. Trouble falling or staying asleep, or sleeping too much: nearly every day 4. Feeling tired or having little energy: nearly every day 5. Poor appetite or overeating: not at all 6. Feeling bad about yourself - or that you are a failure or have let yourself or your family down: nearly every day 7. Trouble concentrating on things, such as reading the newspaper or watching television: several days 8. Moving or speaking so slowly that other people could have noticed. Or the opposite - being so fidgety or restless that you have been moving around a lot more than usual: more than half the days 9. Thoughts that you would be better off or of hurting yourself in some way: several days Total score: 19 Depression Screening Interpretation: Positive Depression Screening Follow-up: Existing condition and In treatment Depression Screening Done: Yes Source: Developed by Drs. Davis Parrish, Shikha Sands, Elver Berrios and colleagues, with an educational haydee from [employer]. Thrive Questionnaire Date Thrive assessed: 04/04/25 I am a: Parent/Caregiver What is your living situation today?: I have a steady place to live Within the past 12 months, did the food you bought not last and you didn't have the money to get more?: Often true Within the past 12 months, did you worry whether your food would run out before you got money to buy more?: Often true Do you have trouble paying for medicines?: No Do you have trouble getting transportation to medical appointments?: No Do you have trouble paying your heating and electricity bill?: No Do you have trouble taking care of your child, family member or friend?: No Do you have trouble with day-to-day activities such as bathing, preparing meals, shopping, managing finances, etc.?: Yes Are you currently unemployed and looking for a job?: No Are you interested in more education?: No Please select the resources that you would like help with: None Currently or been in a relationship where the following occur: No concerns reported THRIVE Score: 2 AUDIT C Alcohol Use Questionnaire (AUDIT-C) 1. How often do you have a drink containing alcohol?: Never 3. How often do you have six or more drinks on one occasion?: Never Total Score: 0 Score Reviewed/Action Taken: No JUSTYN-7 AMB Questionnaire JUSTYN-7 Date JUSTYN - 7 assessed: 07/08/25 Feeling nervous, anxious, or on edge: 1 = Several days Not being able to stop or control worryin = More than half the days Worrying too much about different things: 2 = More than half the days Trouble relaxin = More than half the days Being so restless that it is hard to sit still: 1 = Several days Becoming easily annoyed or irritable: 0 = Not at all Feeling afraid as if something awful might happen: 2 = More than half the days Total JUSTYN-7 score (0-4 normal; 5-9 mild; 10-14 moderate; 15-21 severe): 10 Source: Developed by Drs. Davis Parrish, Shikha Sands, Elver Berrios and colleagues, with an educational haydee from [employer]. Review of Systems Const Denies body aches, Denies chills, Denies fever(s), Denies headache(s) and Denies poor appetite Eyes Reports no additional complaints ENT Denies dizziness and Denies headache(s) Card Denies chest pain, Denies edema, Denies lightheadedness and Denies dyspnea Resp Denies cough and Denies dyspnea GI Denies abdominal pain, Denies constipation, Denies diarrhea, Denies nausea and Denies vomiting Reports no additional complaints Musc Reports no additional complaints and Denies abnormal gait Skin/Breast Reports system reviewed and no additional complaints, except as documented Neuro Denies abnormal gait, Denies dizziness and Denies headache(s) Psych Reports no additional complaints Physical exam (Primary Care) Vital Signs: Last Vital Signs Temp 97.1 F 07/08/25 10:56 Pulse 62 07/08/25 10:56 BP 130/80 07/08/25 10:56 Pulse Ox 92 07/08/25 10:56 Oxygen Delivery Method Room Air 07/08/25 10:56 BMI result Body Mass Index 30.1 Tobacco/Smoking Status: Tobacco use Status Tobacco use date assessed 07/08/25 07/08/25 11:04 Patient Tobacco Use Status Former Tobacco user 07/08/25 11:04 Tobacco use type Cigarette 07/08/25 11:04 e-Cigarette/Vaping Use Never Used 07/08/25 11:04 PHQ-9: PHQ-9 Score PHQ-9: Total score 19 07/08/25 11:27 Depression Screening Interpretation: Positive Depression Screening Follow-up: Existing condition and In treatment Thrive Assessment: Date of Thrive Assessment Date Thrive assessed 04/04/25 07/08/25 11:04 Currently or been in a relationship where the following occur: No concerns reported Const General: cooperative, healthy appearing, comfortable and no acute distress Orientation/consciousness: patient oriented x3 [facility] Head: Yes normocephalic Ears: hearing grossly normal bilaterally General nose exam: Normal external nose present Eyes General: appearance normal, both eyes and all related structures Conjunctivae: conjunctivae normal Neck Neck: Yes full ROM and Yes no lymphadenopathy Resp Effort & Inspection: normal respiratory effort Auscultation: clear to auscultation bilaterally, no crackles, no rales, no rhonchi and no wheezes Cardio Rate: regular rate Rhythm: regular rhythm Skin General skin exam: no rashes or lesions noted Neuro General: patient oriented x3 Gait exam (Neuro): Normal gait present Extrem General: Yes normal to inspection, Yes full ROM and No edema Psych Affect: normal affect Attitude: cooperative Insight: Good insight present (Psych) Judgement: Good judgement present (Psych) Results AMB Hemoglobin A1c AMB Hemoglobin A1c 6.3 % Last Edit by LORRAINE Stuart on 07/08/25 11:47 Coding Level of Care Code Est Pt Level 3 (53762) Diagnoses Anxiety F41.9 Depression, unspecified depression type F32.A Depression Type: unspecified Primary hypertension I10 Hypertension type: primary hypertension Hypercholesterolemia E78.00 Memory impairment R41.3 Precordial chest pain R07.2 COPD (chronic obstructive pulmonary disease) J44.9 Impaired glucose tolerance R73.02 Gastroesophageal reflux disease without esophagitis K21.9 Esophagitis presence: without esophagitis Assessment & Plan Assessment & Plan (1) Anxiety: Code(s): F41.9 - Anxiety disorder, unspecified Category: Medical Plan: Plan to continue on duloxetine and amitriptyline for management of anxiety and depression. I did discuss the importance of taking the medications as prescribed. She is currently on duloxetine, clonazepam, amitriptyline. She is refusing referral to psych and counseling. (2) Depression: Code(s): F32.A - Depression, unspecified Category: Medical Qualifiers: Depression Type: unspecified Qualified Code(s): F32.A - Depression, unspecified Plan: See above (3) Hypertension: Code(s): I10 - Essential (primary) hypertension Category: Medical Qualifiers: Hypertension type: primary hypertension Qualified Code(s): I10 - Essential (primary) hypertension Plan: Continue on current blood pressure medication. Avoid salt intake and encourage healthy diet and regular exercise. (4) Hypercholesterolemia: Code(s): E78.00 - Pure hypercholesterolemia, unspecified Category: Medical Plan: Avoid foods that are high in cholesterol such as red meat, fried foods, eggs and baked goods. Triglyceride goal of less than 150 and LDL goal of less than 100. Continue on atorvastatin 80. Last LDL was 118 and given information today. She will work on her diet and repeat labs in 3 months. (5) Memory impairment: Code(s): R41.3 - Other amnesia Category: Medical Plan: MRI completed 01/2025 normal with nonspecific findings possibly reflecting chronic small vessel disease. She was seen by neurology and per patient was told to follow up as needed. Plan to obtain these notes. (6) Precordial chest pain: Code(s): R07.2 - Precordial pain Category: Medical Plan: Continue to follow with Cardiology echocardiogram scheduled for next month. (7) COPD (chronic obstructive pulmonary disease): Code(s): J44.9 - Chronic obstructive pulmonary disease, unspecified Category: Medical Plan: Patient reporting chest tightness and feeling like she has difficulty breathing. She has not been using her Symbicort adherence and reviewed how to take the inhalers appropriately. (8) Impaired glucose tolerance: Code(s): R73.02 - Impaired glucose tolerance (oral) Category: Medical Plan: Decrease the amount of carbohydrates such as pasta, bread, rice, and potatoes and limit the amount of sweets. Although fruits are generally healthy they should be eaten in moderation as they are still high in sugar. A1c in the office today 6.3% she was given diabetic resources. (9) GERD (gastroesophageal reflux disease): Code(s): K21.9 - Gastro-esophageal reflux disease without esophagitis Category: Medical Qualifiers: Esophagitis presence: without esophagitis Qualified Code(s): K21.9 - Gastro-esophageal reflux disease without esophagitis Plan: Avoid trigger foods such as citrus, tomato products, soda, caffeine, spicy foods and other foods that may be irritating to your stomach. Avoid laying flat 3-4 hours after eating and elevate the head of the bed 30 degrees to prevent acid from moving into the esophagus. Plan to increase omeprazole to b.i.d. Plan This note was constructed using voice recognition software. While every effort has been made to ensure accuracy and student accounts manager, still areas may have been included sometimes these areas may affect the content or meeting of the given symptoms. Total time spent caring for the patient today was 20 minutes. This includes time spent before the visit reviewing the chart, time spent during the visit, and time spent after the visit and documentation. Patient was informed and verbally consented to the use of an ambient scribe for clinic note documentation during this visit. Orders: Orders Lipid Panel 3 Months E78.00 - Pure hypercholesterolemia, unspecified AMB Hemoglobin A1c Today Z13.1 - Encounter for screening for diabetes mellitus Hemoglobin A1c 3 Months R73.02 - Impaired glucose tolerance (oral) Medications: Changed From omeprazole 20 mg PO DAILY To omeprazole 20 mg PO BID 180 caps 0RF Refilled amitriptyline with 10mg tablet for combined dose of 60 mg 50 mg PO BEDTIME 90 tabs 1RF atorvastatin 80 mg PO QPM 90 tabs 1RF amitriptyline with 50mg tablet for combined dose of 60mg 10 mg PO BEDTIME 90 tabs 1RF
--- OUTSIDE RECORDS SUMMARY | 2025-07-08 13:07 | XMS_ITS | Encounter Summary ---
Author Organization [employer] Address [address] [place] [address] Care Team Providers Care Geological Engineer Name Role Phone Unavailable Primary Care Provider Unavailabl e Encounter Details Date Type Department Care Team (Latest Contact Info) Description 02/28/2019 Abstract [facility] CONVERSIONS Dental, Provider, DDS Social History [...]
--- OUTSIDE RECORDS SUMMARY | 2025-07-08 13:07 | XMS_ITS | Clinical Summary ---
Author Organization [facility] Address [facility] [place] [address] Care Team Providers Care Jukebox Coin Collector Name Role Phone Ashley Valladares DO Primary Care Pro vider Unavailable Allergies Active Allergy Reactions Severity Noted Date Comments Codeine Itching/Pruritus Medium 06/17/2016 Medications Medication Sig Dispensed Refills Start Date End Date Status lidocaine (LIDODERM) 5 % Place 1 Patch onto the skin every 24 hours. Apply for no more than 12 hours in any 24 hour period. 0 Active ranitidine (ZANTAC) 150 MG capsule Take 150 mg by mouth daily as needed. 0 Active amitriptyline (ELAVIL) 100 MG tablet Take 100 mg by mouth at bedtime. 0 Active clonazepam (KLONOPIN) 1 MG tablet Take 1 mg by mouth 3 times daily as needed. 0 Active nitroGLYCERIN (NITROSTAT) 0.4 MG SL tablet ONE TABLET UNDER TONGUE NEEDED FOR CHEST PAIN EVERY 5 MINUTES 350 Tab 0 02/06/2018 Active albuterol (PROVENTIL) (2.5 MG/3ML) 0.083% nebulizer solution Take 1 Vial by nebulization every 4 hours as needed for Wheezing. 450 mL 0 02/23/2018 Active amitriptyline (ELAVIL) 50 MG tablet Take 50 mg by mouth at bedtime. 0 Active oxcarbazepine (TRILEPTAL) 150 MG tablet Take 150 mg by mouth. 2 tabs in AM & 3 tabs qhs 0 Active fluticasone 50 MCG/ACT nasal spray SPRAY 2 SPRAYS IN EACH NOSTRIL EVERY DAY 3 Bottle 1 04/10/2018 Active Mometasone Furoate (ASMANEX HFA) 100 MCG/ACT Aerosol Inhale 1 Puff into the lungs 2 times daily. rinse, gargle and spit after each use 1 Inhaler 2 04/10/2018 Active Dextromethorphan-G uaifenesin (MUCINEX DM) 30-600 MG TABLET SR 12 HR Take 1 tablet by mouth every 12 hours. 14 Tab 1 04/10/2018 Active predniSONE (DELTASONE) 20 MG tablet Take 3 tabs QAM x 3 days, take 2 tabs QAM x 3 days, take 1 tab QAM x 3 days 18 Tab 0 04/10/2018 Active Ipratropium-Albute rol (DUONEB) 0.5-2.5 (3) MG/3ML Solution Inhale 3 mL into the lungs once for 1 dose. 1 mL 0 04/10/2018 Active VENTOLIN HFA 108 (90 BASE) MCG/ACT Aero Soln INHALE 2 PUFFS BY MOUTH INTO THE LUNGS FOUR TIMES DAILY NEEDED FOR COUGH OR WHEEZING 18 g 0 04/11/2018 Active atorvastatin (LIPITOR) 80 MG tablet TAKE 1 TABLET BY MOUTH DAILY 90 Tab 1 08/07/2018 Active cetirizine (ZYRTEC) 10 MG tablet TAKE 1 TABLET BY MOUTH DAILY 30 Tab 0 08/20/2018 Active metoprolol (LOPRESSOR) 50 MG tablet TAKE 1 TABLET BY MOUTH DAILY 90 Tab 0 11/22/2018 Active amlodipine (NORVASC) 10 MG tablet TAKE 1 TABLET BY MOUTH DAILY 30 Tab 0 12/31/2018 Active Active Problems Problem Noted Date HTN (hypertension) 12/30/2015 GERD (gastroesophageal reflux disease) 0 12/30/2015 Depression 12/30/2015 Diverticulosis 12/30/2015 Asthma 12/30/2015 History of tobacco abuse 12/01/2015 History of breast cancer 12/01/2015 Overview: Left / chemo 6822-8891 Dyslipidemia ESR raised Immunizations Name Administration Dates Next Due Tdap 03/18/2013 Family History Medical History Relation Name Comments Stroke Father [place] Mother Relation Name Status Comments Father Mother Social History Tobacco Use Types Packs/Day Years Used Date Smoking Tobacco: Former Cigarettes 0.5 24 0 09/04/1967 - 08/04/2006 Smokeless Tobacco: Never Comments:quit for 14 years a nd then went back Alcohol Use Standard Drinks/Week Comments No 0 (1 standard drink = 0.6 oz pur e alcohol) Sex Assigned at Date Recorded Not on file Last Filed Vital Signs Vital Sign Reading Time Taken Comments Blood Pressure 122/74 04/10/2018 2:25 PM EDT Pulse 66 04/10/2018 2:25 PM EDT Temperature 36.8 C (98.3 F) 04/10/2018 2:25 PM EDT Respiratory Rate 16 04/10/2018 2:25 PM EDT Oxygen Saturation 97% 04/10/2018 2:25 PM EDT Inhaled Oxygen Concentration - - Weight 64.1 kg (141 lb 6.4 oz) 04/10/2018 2:25 P M EDT Height 148.6 cm (4' 10.5 ) 04/10/2018 2:25 PM ED T Body Mass Index 29.05 04/10/2018 2:25 PM EDT Plan of Treatment Health Maintenance Due Date Last Done Comments Covid-19 Vaccine (#1) 1950 SHINGLES VACCINE (1 of 2) 2001 PNEUMOCOCCAL VACCINE (1 - PCV) 2016 BONE DENSITY SCREENING 04/14/2018 04/14/2016 DEPRESSION SCREEN 02/06/2019 02/06/2018 (Ex ternal Completion), 02/03/2016 (External Completion) FALL RISK ASSESSMENT 02/06/2019 02/06/2018, 08/19/20 16 MAMMOGRAM 02/28/2019 02/28/2018, 06/04, 06/22/2016 (External Completion), Additional history exists COLON CANCER SCREENING 2019 2009 (Counter Stacker al Completion) CHOLESTEROL SCREENING 02/06/2023 02/06/2018 , 05/12/2017, 11/01/2016, Additional history exists DTAP/TDAP/TD (2 - Td or Tdap) 03/18/2023 03/18/2013 BMI CHECK/ADVISE 09/04/2024 02/06/2018, , 04/04/2016, Additional history exists INFLUENZA (#1) 2025 HEPATITIS C SCREENING Completed 04/04/2016 Care Teams Jukebox Coin Collector Relationship Specialty Start Date End Date Ashley Valladares DO PCP - General Internal Medicine 11/04/15
--- OUTSIDE RECORDS SUMMARY | 2025-07-08 13:07 | XMS_ITS | Encounter Summary ---
Author Organization [facility] Address [facility] [place] [address] Care Team Providers Care Electronic Warfare Officer Name Role Phone Ashley Valladares DO Primary Care Pro vider Unavailable Encounter Details Date Type Department Care Team Description 01/28/2016 Transfer Records Medical Records [address] [place] [id number] Annabelle Lara NP Social History Tobacco Use Types Packs/Day Years Used Date Smoking Tobacco: Former Cigarettes 0.5 24 0 09/04/1967 - 08/04/2006 Comments:quit for 14 years a nd then went back Alcohol Use Standard Drinks/Week Comments No 0 (1 standard drink = 0.6 oz pur e alcohol) Sex Assigned at Date Recorded Not on file documented as of this encounter Plan of Treatment Not on file documented as of this encounter Visit Diagnoses Not on filedocumented in this encounter Care Teams Electronic Warfare Officer Relationship Specialty Start Date End Date Ashley Valladares DO PCP - General Internal Medicine 11/04/15 documented as of this encounter
--- OUTSIDE RECORDS SUMMARY | 2025-07-08 13:07 | XMS_ITS | Encounter Summary ---
Author Organization [facility] Address [address] [place] [id number] Care Team Providers Care Hall Porter Name Role Phone Ashley Valladares DO Primary Care Pro vider Unavailable Encounter Details Date Type Department Care Team Description 01/04/2018 Sales Special Agent Report Medical Records [address] [place] [id number] Rashad Ivy MD Social History Tobacco Use Types Packs/Day Years [...] on filedocumented in this encounter Care Teams Hall Porter Relationship Specialty Start Date End Date Ashley Valladares DO PCP - General Internal Medicine 11/04/15 documented as of this encounter
--- OUTSIDE RECORDS SUMMARY | 2025-07-08 13:07 | XMS_ITS | Encounter Summary ---
Author Organization [facility] Address [address] [place] [address] Care Team Providers Care Forest Fire Management Officer Name Role Phone Ashley Valladares DO Primary Care Pro vider Unavailable Encounter Details Date Type Department Care Team Description 11/23/2017 Environmental Lawyer Report Medical Records [address] [place] [id number] Rashad Ivy MD Social History Tobacco Use [...] on filedocumented in this encounter Care Teams Forest Fire Management Officer Relationship Specialty Start Date End Date Ashley Valladares DO PCP - General Internal Medicine 11/04/15 documented as of this encounter
--- OUTSIDE RECORDS SUMMARY | 2025-07-08 13:07 | XMS_ITS | Encounter Summary ---
Author Organization [facility] Address [facility] [place] [address] Care Team Providers Care Sheet Rock Nailer Name Role Phone Ashley Valladares DO Primary Care Pro vider Unavailable Encounter Details Date Type Department Care Team Description 02/07/2018 Orders Only Adult Medicine [address] [id number] Ashley Valladares DO Acute renal insufficiency (Primary Dx) Social History Tobacco Use Types Packs/Day Years Used Date Smoking Tobacco: Former Cigarettes 0.5 24 0 09/04/1967 - 08/04/2006 Smokeless Tobacco: Never Comments:quit for 14 years a nd then went back Alcohol Use Standard Drinks/Week Comments No 0 (1 standard drink = 0.6 oz pur e alcohol) Sex Assigned at Date Recorded Not on file documented as of this encounter Plan of Treatment Scheduled Orders Name Type Priority Associated Diagnoses Orde r Schedule BASIC METABOLIC PANEL Lab Routine Acute renal insufficiency Expected: 03/09/2018, Expires: 02/07/2019 documented as of this encounter Visit Diagnoses Diagnosis Acute renal insufficiency- Primary Unspecified disorder of kidney and ureter documented in this encounter Care Teams Sheet Rock Nailer Relationship Specialty Start Date End Date Ashley Valladares DO PCP - General Internal Medicine 11/04/15 documented as of this encounter
--- OUTSIDE RECORDS SUMMARY | 2025-07-08 13:07 | XMS_ITS | Encounter Summary ---
Author Organization [facility] Address [address] [place] [address] Care Team Providers Care Novelty Twister Tender Name Role Phone Ashley Valladares DO Primary Care Pro vider Unavailable Encounter Details Date Type Department Care Team Description 02/27/2018 Transfer Records Medical Records [address] [place] [id number] Abstract, Provider Social History Tobacco Use Types Packs/Day Years [...] on filedocumented in this encounter Care Teams Novelty Twister Tender Relationship Specialty Start Date End Date Ashley Valladares DO PCP - General Internal Medicine 11/04/15 documented as of this encounter
--- OUTSIDE RECORDS SUMMARY | 2025-07-08 13:07 | XMS_ITS | Clinical Summary ---
Author Organization [employer] Address [address] [facility] [address] [place] [address] Care Team Providers Care Dye Weigher Name Role Phone Unavailable Primary Care Provider [...]
--- OUTSIDE RECORDS SUMMARY | 2025-07-08 13:07 | XMS_ITS | Encounter Summary ---
Author Organization [facility] Address [facility] [place] [address] Care Team Providers Care Support Coordinator Name Role Phone Ashley Valladares DO Primary Care Pro vider Unavailable Encounter Details Date Type Department Care Team Description 12/03/2015 Release of Information Medical Records [address] [place] [id number] Abstract, Provider Social History Tobacco Use Types Packs/Day Years Used Date Smoking Tobacco: Former Cigarettes 0.5 24 0 09/04/1967 - 08/04/2006 Comments:quit for 14 years a nd then went back Alcohol Use Standard Drinks/Week Comments Not Asked 0 (1 standard drink = 0.6 oz pur e alcohol) Sex Assigned at Date Recorded Not on file documented as of this encounter Plan of Treatment Not on file documented as of this encounter Visit Diagnoses Not on filedocumented in this encounter Care Teams Support Coordinator Relationship Specialty Start Date End Date Ashley Valladares DO PCP - General Internal Medicine 11/04/15 documented as of this encounter
--- OUTSIDE RECORDS SUMMARY | 2025-07-08 13:07 | XMS_ITS | Encounter Summary ---
Author Organization [employer] Address [address] [facility] 7t [place] [address] Care Team Providers Care Fraud Examiner Name Role Phone Unavailable Primary Care Provider Unavailabl e Reason for Visit * Reason Onset Date Comments Appointment 10/05/2022 Patient has had to cancel appt twice due to no transportation but would like to reschedule appt with Dr. Small when possible. Please reach out to patient. Encounter Details Date Type Department Care Team ([facility] st Contact Info) Description 10/05/2022 Telephone [facility] ADULT D[facility]AL [address] [place], [place] [phone] Nick Small, DMD [address] [place], [place] [phone] Appointment (Patient has had to cancel appt [...]
--- OUTSIDE RECORDS SUMMARY | 2025-07-08 13:08 | XMS_ITS | Encounter Summary ---
Author Organization [facility] Address [facility] [place] [address] Care Team Providers Care Brand Representative Name Role Phone Ashley Valladares DO Primary Care Pro vider Unavailable Encounter Details Date Type Department Care Team Description 04/05/2016 RADIOLOGY MANAGER/[place] Report Medical Records [address] [place] [address] Ashley Valladares DO Social History Tobacco Use Types Packs/Day Years [...] on filedocumented in this encounter Care Teams Brand Representative Relationship Specialty Start Date End Date Ashley Valladares DO PCP - General Internal Medicine 11/04/15 documented as of this encounter
--- OUTSIDE RECORDS SUMMARY | 2025-07-08 13:08 | XMS_ITS | Encounter Summary ---
Author Organization [facility] Address [facility] [place] [address] Care Team Providers Care Polish Compounder Name Role Phone Ashley Valladares DO Primary Care Pro vider Unavailable Reason for Visit * Reason Onset Date Comments Pre Op Visit 08/10/2016 Encounter Details Date Type Department Care Team Description 08/10/2016 Telephone Adult Medicine [address] [address] Ashley Valladares DO Pre Op Visit Social History Tobacco Use Types Packs/Day Years Used Date Smoking Tobacco: Former Cigarettes 0.5 24 0 09/04/1967 - 08/04/2006 Comments:quit for 14 years a nd then went back Alcohol Use Standard Drinks/Week Comments No 0 (1 standard drink = 0.6 oz pur e alcohol) Sex Assigned at Date Recorded Not on file documented as of this encounter Miscellaneous Notes * Telephone Encounter - Azucena Navarrete - 08/10/2016 11:37 AM EST Date of surgery:08/24/16 What surgery is patient having (gall bladder, cataract, appendix, etc...)?: Cataract surgery Surgeon's name: Dr. Shay Grace Office phone number of surgeon: [phone] Fax # for surgeons office: Where is surgery being performed? [facility] Surgeons Diagnosis/problem for surgery: Cataracts PCP: Ashley Hernandez Patients insurance: [place] / [place] / Product Type: MEDICARE [id number] documented in this encounter Plan of Treatment Not on file documented as of this encounter Visit Diagnoses Not on filedocumented in this encounter Care Teams Polish Compounder Relationship Specialty Start Date End Date Ashley Valladares DO PCP - General Internal Medicine 11/04/15 documented as of this encounter
--- OUTSIDE RECORDS SUMMARY | 2025-07-08 13:08 | XMS_ITS | Encounter Summary ---
Author Organization [facility] Address [address] [place] [address] Care Team Providers Care Concrete Craftsman Name Role Phone Ashley Valladares DO Primary Care Pro vider Unavailable Reason for Visit * Reason Onset Date Comments DME Request 03/29/2018 Encounter Details Date Type Department Care Team Description 03/29/2018 Telephone Adult Medicine [address] [address] Ashley Valladares DO DME Request Social History Tobacco Use Types Packs/Day Years [...] encounter Miscellaneous Notes * Telephone Encounter - Halima MartinezP.NMagdy - 04/03/2018 11:43 AM EDT No DX JEWEL in Pt chart Contact # for Pt is not working Eaxed back- NOT authorized * Telephone Encounter - Kathy Matthews - 04/03/2018 10:27 AM EDT Sirena calling from [facility] re: status of dme, please call her at [phone] * Telephone Encounter - Beatrice Caicedo - 03/29/2018 6:08 PM EDT Name of Product: cpap supplies Specific information about product see form in dme folder west # Needed Reason patient is asking for this supply? Have you received this supply before? If yes , when?: Have you discussed the need for this supply with a provider at a recent visit? If yes, with who and when? When completed: Fax to other office/MD at fax # [phone] Have you told the patient it will take 7-10 days for completion of this request? documented in this encounter Plan of Treatment Not on file documented as of this encounter Visit Diagnoses Not on filedocumented in this encounter Care Teams Concrete Craftsman Relationship Specialty Start Date End Date Ashley Valladares DO PCP - General Internal Medicine 11/04/15 documented as of this encounter
--- OUTSIDE RECORDS SUMMARY | 2025-07-08 13:08 | XMS_ITS | Encounter Summary ---
Author Organization [facility] Address [address] [place] [address] Care Team Providers Care Handle Machine Operator Name Role Phone Ashley Valladares DO Primary Care Pro vider Unavailable Encounter Details Date Type Department Care Team Description 03/02/2018 Business Doc Medical Records [address] [place] [address] Abstract, Provider Social History Tobacco Use Types [...] on filedocumented in this encounter Care Teams Handle Machine Operator Relationship Specialty Start Date End Date Ashley Valladares DO PCP - General Internal Medicine 11/04/15 documented as of this encounter
--- OUTSIDE RECORDS SUMMARY | 2025-07-08 13:08 | XMS_ITS | Encounter Summary ---
Author Organization [facility] Address [address] [place] [address] Care Team Providers Care Body Stylist Name Role Phone Ashley Valladares DO Primary Care Pro vider Unavailable Encounter Details Date Type Department Care Team Description 03/13/2018 Parcel Contractor Report Medical Records [address] [place] [address] Rashad Ivy MD Social History Tobacco Use [...] on filedocumented in this encounter Care Teams Body Stylist Relationship Specialty Start Date End Date Ashley Valladares DO PCP - General Internal Medicine 11/04/15 documented as of this encounter
--- OUTSIDE RECORDS SUMMARY | 2025-07-08 13:08 | XMS_ITS | Encounter Summary ---
Author Organization [facility] Address [address] [place] [address] Care Team Providers Care Sock Boarder Name Role Phone Ashley Valladares DO Primary Care Pro vider Unavailable Encounter Details Date Type Department Care Team Description 06/06/2017 House Cleaner Supervisor Report Medical Records [address] [place] [address] Rashad Ivy MD Social History Tobacco Use [...] on filedocumented in this encounter Care Teams Sock Boarder Relationship Specialty Start Date End Date Ashley Valladares DO PCP - General Internal Medicine 11/04/15 documented as of this encounter
--- OUTSIDE RECORDS SUMMARY | 2025-07-08 13:08 | XMS_ITS | Encounter Summary ---
Author Organization [facility] Address [address] [place] [address] Care Team Providers Care Manager Lsw Name Role Phone Ashley Valladares DO Primary Care Pro vider Unavailable Encounter Details Date Type Department Care Team Description 11/08/2018 District Resource Officer Report Medical Records [address] [place] [address] Rashad Ivy MD Social History Tobacco Use [...] on filedocumented in this encounter Care Teams Manager Lsw Relationship Specialty Start Date End Date Ashley Valladares DO PCP - General Internal Medicine 11/04/15 documented as of this encounter
--- OUTSIDE RECORDS SUMMARY | 2025-07-08 13:08 | XMS_ITS | Encounter Summary ---
Author Organization [facility] Address [address] [place] [address] Care Team Providers Care Client Application Support Specialist Name Role Phone Ashley Valladares DO Primary Care Pro vider Unavailable Encounter Details Date Type Department Care Team Description 12/29/2016 Access Liaison Report Medical Records [address] [place] [address] Rashad Ivy MD Social History Tobacco Use [...] on filedocumented in this encounter Care Teams Client Application Support Specialist Relationship Specialty Start Date End Date Ashley Valladares DO PCP - General Internal Medicine 11/04/15 documented as of this encounter
--- OUTSIDE RECORDS SUMMARY | 2025-07-08 13:08 | XMS_ITS | Encounter Summary ---
Author Organization [facility] Address [address] [place] [address] Care Team Providers Care Human Resources Administrator Name Role Phone Ashley Valladares DO Primary Care Pro vider Unavailable Encounter Details Date Type Department Care Team Description 07/02/2018 Greeter Guest Services Report Medical Records [address] [place] [address] Rashad Ivy MD Social History Tobacco Use [...] on filedocumented in this encounter Care Teams Human Resources Administrator Relationship Specialty Start Date End Date Ashley Valladares DO PCP - General Internal Medicine 11/04/15 documented as of this encounter
--- OUTSIDE RECORDS SUMMARY | 2025-07-08 13:08 | XMS_ITS | Encounter Summary ---
Author Organization [facility] Address [address] [place] [address] Care Team Providers Care Mat Cleaning Machine Operator Name Role Phone Ashley Valladares DO Primary Care Pro vider Unavailable Encounter Details Date Type Department Care Team Description 06/06/2016 Advanced Manufacturing Engineer Report Medical Records [address] [place] [address] Rashad Ivy MD Social History Tobacco Use [...] on filedocumented in this encounter Care Teams Mat Cleaning Machine Operator Relationship Specialty Start Date End Date Ashley Valladares DO PCP - General Internal Medicine 11/04/15 documented as of this encounter
--- OUTSIDE RECORDS SUMMARY | 2025-07-08 13:08 | XMS_ITS | Encounter Summary ---
Author Organization [facility] Address [address] [place] [address] Care Team Providers Care Float Operator Name Role Phone Ashley Valladares DO Primary Care Pro vider Unavailable Encounter Details Date Type Department Care Team Description 10/04/2016 Car Conditioner Report Medical Records [address] [place] [address] Rashad Ivy MD Social History Tobacco Use [...] on filedocumented in this encounter Care Teams Float Operator Relationship Specialty Start Date End Date Ashley Valladares DO PCP - General Internal Medicine 11/04/15 documented as of this encounter
== END 2025-07-08 11:52 | disposition home or self-care (01) ==
LOC: HO.HMCH 10:52
DX: J44.9 Chronic obstructive pulmonary disease, unspecified (principal); F41.9 Anxiety disorder, unspecified; F32.A Depression, unspecified; I10 Essential (primary) hypertension; E78.00 Pure hypercholesterolemia, unspecified; R41.3 Other amnesia; R07.2 Precordial pain; R73.02 Impaired glucose tolerance (oral); K21.9 Gastro-esophageal reflux disease without esophagitis; Z13.1 Encounter for screening for diabetes mellitus

== ENCOUNTER → 2025-07-08 10:52 | Outpatient (BNVA) | payer MEDICARE, SELFPAY | DX: F41.9 Anxiety disorder, unspecified (principal); F32.A Depression, unspecified; I10 Essential (primary) hypertension; E78.00 Pure hypercholesterolemia, unspecified; R41.3 Other amnesia; R07.2 Precordial pain; J44.9 Chronic obstructive pulmonary disease, unspecified; K21.9 Gastro-esophageal reflux disease without esophagitis; R73.02 Impaired glucose tolerance (oral) | CPT/HCPCS: 83036; 99212 ==

== ENCOUNTER 2025-07-14 09:42 | Outpatient (REF) | payer MEDICARE, SELFPAY ==
--- NOTE | ~2025-07-14 | MM_ITS ---
STUDY: DUAL ENERGY X-RAY ABSORPTIOMETRY / DXA REASON FOR EXAM: Female, 75 years old Z78.0 - Asymptomatic menopausal state TECHNIQUE: Bone Mineral Density (BMD) measurements of the lumbar spine and left hip were obtained using [employer] COMPARISON: None FINDINGS: L1-L2 BMD: 1.029 g/cm2 L1-L2 T score: -1.1. This corresponds to Normal bone density. Left femoral neck BMD: 0.734 g/cm2 Left femoral neck T score: -2.2. This corresponds to osteopenia. Left total hip BMD: 0.752 g/cm2 Left total hip T score: -2.0. This corresponds to osteopenia. FRAX score: 10 year risk of major osteoporotic fracture 24.3%, 10 year risk of hip fracture 13.7% MM/XR DEXA axial skeleton IMPRESSION: Osteopenia Reference Information: The T-score is the number of standard deviations above or below the standard which is normal for young adults at their peak bone mineral density. The World Health Organization (WHO) interprets the T-scores as follows: At or above -1 SD Normal bone density Between -1 and -2.5 SD Osteopenia At or below -2.5 SD Osteoporosis Electronically signed by: Darren Mccracken MD 07/14/2025 12:41 PM [facility]
--- OUTSIDE RECORDS SUMMARY | 2025-07-14 10:59 | XMS_ITS | Encounter Summary ---
Author Organization [employer] Address [address] [facility] 7t [place] [address] Care Team Providers Care Gill Box Fixer Name Role Phone Unavailable Primary Care Provider Unavailabl e Reason for Visit * Reason Onset Date Comments Appointment 10/05/2022 Patient has had to cancel appt twice due to no transportation but would like to reschedule appt with Dr. Small when possible. Please reach out to patient. Encounter Details Date Type Department Care Team ([facility] st Contact Info) Description 10/05/2022 Telephone [facility] ADULT DENTAL [address] [place], [place] [phone] Nick Small, DMD [address] [place], [place] [phone] Appointment (Patient has had to cancel appt [...]
--- OUTSIDE RECORDS SUMMARY | 2025-07-14 10:59 | XMS_ITS | Encounter Summary ---
Author Organization [employer] Address [address] [facility] 7t [place] [address] Care Team Providers Care Incident Response Engineer Name Role Phone Unavailable Primary Care Provider Unavailabl e Encounter Details Date Type Department Care Team (Latest Contact Info) Description 02/28/2019 Abstract [facility] CONVERSIONS Dental, Provider, DDS Social History Tobacco [...]
--- OUTSIDE RECORDS SUMMARY | 2025-07-14 10:59 | XMS_ITS | Clinical Summary ---
Author Organization [employer] Address [address] [facility] [address] [place] [address] Care Team Providers Care Machine Adjuster Leader Case Trim Name Role Phone Unavailable Primary Care Provider [...]
== END 2025-07-14 09:43 | disposition home or self-care (01) ==
LOC: HO.MAMMO 09:42
DX: Z13.820 Encounter for screening for osteoporosis (principal); Z78.0 Asymptomatic menopausal state
CPT/HCPCS: 77080

== ENCOUNTER → 2025-07-14 10:00 | Outpatient (BNV) | payer MEDICARE, SELFPAY | PROVIDERS: Visit Provider Radiology Body Imaging | DX: E28.39 Other primary ovarian failure (principal) | CPT/HCPCS: 77080 ==

== ENCOUNTER → 2025-07-21 12:35 | Outpatient (REF) | payer MEDICARE, SELFPAY ==
--- NOTE | 2025-07-21 12:37 | CA_ITS ---
Transthoracic Echocardiogram Patient (Last, First, Middle): Bee Boo J Gender: F Date of : 1950 Age: 75 Procedure Date: 07/21/2025 Procedure Type: Transthoracic Echocardiogram Location: OP Height: 144. cm Weight: 63.05 kg BSA: 1.53 m2 Heart Rate: 48 bpm BP: 128 / 70 mmHg Interactive Video Technician: RYAN Referring MD: Indra Stratton MD Symptoms: R07.2 - Precordial pain Study Quality: Adequate ECG Rhythm: Sinus Bradycardia Conclusions: - The left ventricular systolic function is normal. The calculated ejection fraction is 66% by biplane method. - There is mild calcification of the aortic valve. - No obvious valvular pathology seen on this study. Findings Left Ventricle Normal left ventricular cavity size. There is normal left ventricular wall thickness. The left ventricular systolic function is normal. The calculated ejection fraction is 66% by biplane method. There is no evidence of regional wall motion abnormalities. Diastolic function is normal for age. Right Ventricle Normal right ventricular cavity size and systolic function. Atria Both atria are normal in size. Aortic Valve The aortic valve was not well visualized. There is mild calcification of the aortic valve. There is no aortic valve regurgitation. No significant aortic stenosis. Mitral Valve The mitral valve appears normal. There is no mitral valve regurgitation. There is no mitral valve stenosis. Pulmonic Valve The pulmonic valve is likely normal. Tricuspid Valve There is no tricuspid valve regurgitation. Tricuspid regurgitation envelope is inadequate for calculation of right ventricular systolic pressure. Great Vessels The asc aorta and aortic arch are normal in size. Venous The inferior vena cava is normal in size and collapses greater than 50% with inspiration. Pericardium/Pleural There is no evidence of pericardial effusion. Prior Study Comparison No prior study available for comparison. Recommendations, Care & Conclusions No obvious valvular pathology seen on this study. Measurements 2D Linear Measurements IVSd: 0.83 0.6-0.9/0.6-1.0 cm LVIDd: 3.66 3.9-5.3/4.2-5.9 cm LVIDd Index: 2.39 2.4-3.2/2.2-3.1 cm/m2 LVIDs: 2.44 2.0-3.6 cm LVPWd: 0.81 0.7-1.1 cm LA Diam: 2.90 2.7-3.8/3.0-4.0 cm LAIDs Index: 1.90 1.5-2.3 cm/m2 LV Mass: 103.84 67-162/88-224 g LV Mass Index: 67.87 43-95/49-115 g/m2 LVOT Diam: 1.70 3.0+(-)1.3 cm 2D Systolic Function EF 4C: 61.40 >55% EF 2C: 67.60 >55% EF BiP: 65.90 >55% Mitral Valve MV Pk E: 0.94 MV PK A: 0.95 MV Decel Time: 184.00 E/A: 1.00 E'Lateral: 7.94 E'Medial: 6.20 E/E' Med: 15.20 E/E' Lat: 11.90 PHT: 54.00 MVA PHT: 4.07 Decel [place]: 5.13 Aortic Valve AoV Pk Eb: 1.80 AoV Mn Eb: 1.25 AoV VTI: 0.48 AoV Pk Grad: 13.00 Aov Mn Grad: 7.00 SADIQ Cont.VTI: 1.28 LVOT LVOT Pk Eb: 1.05 LVOT Mn Eb: 0.73 LVOT VTI: 0.27 LVOT Pk Grad: 4.00 LVOT Mn Grad: 2.00 LVOT Diam: 1.70 LVOT Area: 2.27 Diastolic Function MV Pk E: 0.94 MV Pk A: 0.95 E/A: 1.00 E'Medial: 6.20 E/E' Med: 15.20 E' Laterial: 7.94 E/E' Lat: 11.90 Right Ventricle TAPSE (mm): 19.30 TVS' Eb: 9.68 Tricuspid Valve RA Press: 3.00 Great Vessels Aorta Sinus of Valsalva: 2.60 2.0-3.5 cm Ao Asc: 2.90 2.1-3.4 cm Ao Arch: 2.20 Pulmonary Veins Pulm Vein S/D 1.30 Pulmonary Valve PV Pk Eb: 1.05 Peak PV Grad: 4.00 Updated in Other Vendor System with Status of Final Indra Stratton MD electronically signed on 07/21/2025 4:26:19 PM with status of Final
== END ==
LOC: HO.CARD 12:35
PROVIDERS: Visit Provider Internal Medicine
DX: R07.2 Precordial pain (principal)
CPT/HCPCS: 93306

== ENCOUNTER → 2025-07-21 12:37 | Outpatient (BNV) | payer MEDICARE, SELFPAY | PROVIDERS: Visit Provider Internal Medicine | DX: I35.8 Other nonrheumatic aortic valve disorders (principal) | CPT/HCPCS: 93306 ==